=== PATIENT | female | born 1970 | race Caucasian/White ===

== ENCOUNTER 2017-09-03 16:06 | Emergency (ER) | payer OTHER ==
[~2017-09-03] VITALS: Ht 162.6 cm; Wt 47.0 kg
[~2017-09-03 16:06] MED LIST: ALBUTEROL SUL0.083 % IN; ATROVENT HFA17 MCG IN; ATUSS DS OR; AUGMENTIN500TAB PO; AUGMENTIN875TAB PO; CEPHALEXIN500 MG PO; CIPROFLOXACIN500 M1 PO; CIPROFLOXACN500 MG PO; MEDDOSEPAK PO; METRONIDAZOLE500 MG PO; NAPROSYN500 MG PO; NO HOME MEDS; NO MEDS; NYSTATIN100000 M1 PO; PREDNISONE20 MG PO; PREVPAC PO; PROAIR HFA IN; ROBITUSSIN AC10 ML PO; TESSALON PER100 MG PO; TORADOL OR; TRAMADOL HCL50 MG PO; ZITHROMAX500 MG PO; ZPAK OR; ZYPREXA ZYDI15 MG OR; ZYPREXA ZYDI15 MG PO
[2017-09-03 16:48] LABS: HEMATOCRIT 43.6 % (37.0-47.0); HEMOGLOBIN 14.9 g/dl (12.0-16.0); IMMATURE GRANULOCYTES 0.2 % (0.0-1.0); MEAN CELL VOLUME 96.9 fL CALC (80.0-100.0); MEAN CORPUSCULAR HGB 33.1 pG CALC (26.0-32.0); MEAN CORPUSCULAR HGB CONC 34.2 g/L CALC (32.0-36.0); NEUT# 3.02 thou/uL (2.00-7.15); RED BLOOD COUNT 4.5 mill/uL (4.20-5.60); RED CELL DISTRI WIDTH 15.3 % (11.5-15.5)
[2017-09-03 17:01] LABS: ALBUMIN 4.4 g/dL (3.2-5.0); ALKALINE PHOSPHATASE 73 u/l (38-126); ANION GAP 13 (6-22 (CALC)); BILIRUBIN, TOTAL 0.6 mg/dL (0.0-1.4); BUN 4 mg/dL (7-17); BUN/CREATININE RATIO 8 (12-20 (CALC)); CALCIUM 9.3 mg/dL (8.4-10.2); CARBON DIOXIDE 29 mmol/l (22-30); CHLORIDE 99 mmol/l (95-108); CREATININE 0.5 mg/dL (0.5-1.0); GFR > 60 ML/MIN (>=60 (CALC)); GFR FOR AFR.AMER. > 60 ML/MIN (>=60 (CALC)); GLUCOSE 106 mg/dL (65-105); POTASSIUM 3.6 mmol/l (3.5-5.1); SGOT/AST 38 u/l (14-36); SGPT/ALT 58 u/l (9-52); SODIUM 137 mmol/l (137-146); TOTAL PROTEIN 7.3 g/dL (6.3-8.2)
[2017-09-03 17:12] LABS: MYOGLOBIN 23 ng/mL (0 - 62)
[2017-09-03 17:13] LABS: INFLUENZA A POSITIVE (NONE DETECT); INFLUENZA B NONE DETECTED (NONE DETECT)
[2017-09-03] MEDS ORDERED: ZITHROMAX250 MG PO (17:42)
[2017-09-03] MEDS ORDERED: TAM75CAP PO (17:42)
[2017-09-03] MEDS ORDERED: TYLENOL # 31 TA1 PO (17:42)
[2017-09-03] MEDS ORDERED: PREDNISONE50 MG PO (17:42)
[2017-09-03 18:57] VITALS: BP 134/60
== END 2017-09-03 18:57 | disposition home or self-care (01) | DRG 153 ==
LOC: ED 16:06
PROVIDERS: Emergency Medicine
DX: J11.1 Influenza due to unidentified influenza virus with other respiratory manifestations (principal); J44.9 Chronic obstructive pulmonary disease, unspecified; R50.9 Fever, unspecified; R06.02 Shortness of breath; R05 Cough; Z72.0 Tobacco use

== ENCOUNTER 2018-06-09 19:43 | Emergency (ER) | payer OTHER ==
[~2018-06-09] VITALS: Ht 162.6 cm; Wt 44.5 kg
[~2018-06-09 19:43] MED LIST changes: +PREDNISONE50 MG PO; +TAM75CAP PO; +TYLENOL # 31 TA1 PO; +ZITHROMAX250 MG PO
[2018-06-09] MEDS ORDERED: OLANZAPINE2.5 MG PO (19:57)
[2018-06-09 20:41] LABS: HEMATOCRIT 43.5 % (37.0-47.0); HEMOGLOBIN 15.1 g/dl (12.0-16.0); IMMATURE GRANULOCYTES 0.3 % (0.0-5.0); MEAN CELL VOLUME 99.3 fL CALC (80.0-100.0); MEAN CORPUSCULAR HGB 34.5 pG CALC (26.0-32.0); MEAN CORPUSCULAR HGB CONC 34.7 g/L CALC (32.0-36.0); NEUT# 3.31 thou/uL (2.00-7.15); RED BLOOD COUNT 4.38 mill/uL (4.20-5.60); RED CELL DISTRI WIDTH 12.8 % (11.5-15.5)
[2018-06-09 20:45] LABS: URINE BILIRUBIN - DIPSTICK NEGATIVE (NEGATIVE); URINE BLOOD DIPSTICK NEGATIVE (NEGATIVE); URINE COLOR YELLOW; URINE GLUCOSE - DIPSTICK NEGATIVE (NEGATIVE); URINE KETONE NEGATIVE (NEGATIVE); URINE LEUK ESTERASE NEGATIVE (NEGATIVE); URINE NITRITE - DIPSTICK NEGATIVE (Negative); URINE PH 6.5 (4.5-8.0); URINE PROTEIN - DIPSTICK NEGATIVE (NEG-TRACE); URINE UROBILINOGEN - DIPSTICK 0.2 E.U./dL (0.2)
[2018-06-09 20:46] LABS: URINE CLARITY CLEAR
[2018-06-09 20:57] LABS: BARBITURATES NEGATIVE (NEGATIVE); COCAINE NEGATIVE (NEGATIVE); METHADONE NEGATIVE (NEGATIVE); OXCYCODONE NEGATIVE (NEGATIVE); TETRAHYDROCANNABIONOL NEGATIVE (NEGATIVE); TRICYLIC ANTIDEPRESSANTS NEGATIVE (NEGATIVE)
[2018-06-09 21:01] LABS: ALBUMIN 3.6 g/dL (3.2-5.0); ALKALINE PHOSPHATASE 92 u/l (38-126); BILIRUBIN, TOTAL 0.4 mg/dL (0.0-1.4); BUN 5 mg/dL (7-17); BUN/CREATININE RATIO 13 (12-20 (CALC)); CARBON DIOXIDE 34 mmol/l (22-30); CHLORIDE 96 mmol/l (95-108); CREATININE 0.4 mg/dL (0.5-1.0); GFR > 60 ML/MIN (>=60 (CALC)); GFR FOR AFR.AMER. > 60 ML/MIN (>=60 (CALC)); SGOT/AST 25 u/l (14-36); SGPT/ALT 37 u/l (9-52); SODIUM 135 mmol/l (137-146); TOTAL PROTEIN 6.5 g/dL (6.3-8.2)
[2018-06-09 21:01] LABS: INFLUENZA A NONE DETECTED (NONE DETECT); INFLUENZA B NONE DETECTED (NONE DETECT)
[2018-06-09 21:03] LABS: ANION GAP 9 (6-22 (CALC)); POTASSIUM 3.7 mmol/l (3.5-5.1)
[2018-06-09] MEDS ORDERED: PROVENTIL HFA IN (21:59)
[2018-06-09] MEDS ORDERED: CODEINE/GUAIFEN1 SOL PO (22:00)
[2018-06-09 22:34] VITALS: BP 145/74
== END 2018-06-09 22:34 | disposition home or self-care (01) ==
LOC: ED 19:43
PROVIDERS: Emergency Medicine
DX: J44.9 Chronic obstructive pulmonary disease, unspecified (principal); F32.9 Major depressive disorder, single episode, unspecified; F17.210 Nicotine dependence, cigarettes, uncomplicated; R06.02 Shortness of breath; R51 Headache; R05 Cough; R94.31 Abnormal electrocardiogram [ECG] [EKG]

== ENCOUNTER 2018-06-19 14:12 | Emergency (ER) | payer OTHER ==
[~2018-06-19] VITALS: Ht 162.6 cm; Wt 47.0 kg
[~2018-06-19 14:12] MED LIST changes: +CODEINE/GUAIFEN1 SOL PO; +OLANZAPINE2.5 MG PO; +PROVENTIL HFA IN
[2018-06-20 00:08] LABS: HEMATOCRIT 43.9 % (37.0-47.0); HEMOGLOBIN 15.2 g/dl (12.0-16.0); IMMATURE GRANULOCYTES 0.2 % (0.0-5.0); MEAN CELL VOLUME 98.4 fL CALC (80.0-100.0); MEAN CORPUSCULAR HGB 34.1 pG CALC (26.0-32.0); MEAN CORPUSCULAR HGB CONC 34.6 g/L CALC (32.0-36.0); NEUT# 5.74 thou/uL (2.00-7.15); RED BLOOD COUNT 4.46 mill/uL (4.20-5.60); RED CELL DISTRI WIDTH 13.2 % (11.5-15.5)
[2018-06-20 00:13] LABS: URINE BLOOD DIPSTICK NEGATIVE (NEGATIVE); URINE COLOR YELLOW; URINE GLUCOSE - DIPSTICK NEGATIVE (NEGATIVE); URINE KETONE 40 mg/dL (NEGATIVE); URINE LEUK ESTERASE NEGATIVE (NEGATIVE); URINE NITRITE - DIPSTICK NEGATIVE (Negative); URINE PROTEIN - DIPSTICK TRACE mg/dL (NEG-TRACE); URINE SPECIFIC GRAVITY 1.025; URINE UROBILINOGEN - DIPSTICK 0.2 E.U./dL (0.2)
[2018-06-20 00:15] VITALS: BP 142/90
[2018-06-20 00:16] LABS: BARBITURATES NEGATIVE (NEGATIVE); COCAINE NEGATIVE (NEGATIVE); METHADONE NEGATIVE (NEGATIVE); TETRAHYDROCANNABIONOL NEGATIVE (NEGATIVE); TRICYLIC ANTIDEPRESSANTS NEGATIVE (NEGATIVE)
[2018-06-20 00:17] LABS: OXCYCODONE NEGATIVE (NEGATIVE); URINE CLARITY CLEAR
[2018-06-20 00:18] LABS: URINE BILIRUBIN - DIPSTICK TRACE (NEGATIVE)
[2018-06-20 00:32] LABS: ALKALINE PHOSPHATASE 92 u/l (38-126); ANION GAP 13 (6-22 (CALC)); BILIRUBIN, TOTAL 0.9 mg/dL (0.0-1.4); BUN 9 mg/dL (7-17); BUN/CREATININE RATIO 22 (12-20 (CALC)); CARBON DIOXIDE 29 mmol/l (22-30); CHLORIDE 100 mmol/l (95-108); CREATININE 0.4 mg/dL (0.5-1.0); GFR > 60 ML/MIN (>=60 (CALC)); GFR FOR AFR.AMER. > 60 ML/MIN (>=60 (CALC)); POTASSIUM 3.2 mmol/l (3.5-5.1); SGOT/AST 40 u/l (14-36); SGPT/ALT 42 u/l (9-52); SODIUM 138 mmol/l (137-146); TOTAL PROTEIN 6.8 g/dL (6.3-8.2)
== END 2018-06-20 00:15 | disposition short-term general hospital (02) ==
LOC: ED 14:12
PROVIDERS: Emergency Medicine
DX: S22.088A Other fracture of T11-T12 vertebra, initial encounter for closed fracture (principal); S80.12XA Contusion of left lower leg, initial encounter; S80.11XA Contusion of right lower leg, initial encounter; J44.9 Chronic obstructive pulmonary disease, unspecified; F32.9 Major depressive disorder, single episode, unspecified; F17.210 Nicotine dependence, cigarettes, uncomplicated; W18.2XXA Fall in (into) shower or empty bathtub, initial encounter; Y93.E1 Activity, personal bathing and showering; Y92.002 Bathroom of unspecified non-institutional (private) residence as the place of occurrence of the external cause

== ENCOUNTER 2018-07-26 15:29 | Emergency (ER) | payer OTHER ==
[~2018-07-26] VITALS: Ht 162.6 cm; Wt 45.0 kg
[2018-07-26] MEDS ORDERED: TORADOL PO (15:55)
[2018-07-26] MEDS ORDERED: FLEXERIL PO (15:55)
[2018-07-26 16:15] VITALS: BP 109/78
== END 2018-07-26 16:15 | disposition home or self-care (01) ==
LOC: ED 15:29
DX: M54.6 Pain in thoracic spine (principal); S22.089D Unspecified fracture of T11-T12 vertebra, subsequent encounter for fracture with routine healing; J44.9 Chronic obstructive pulmonary disease, unspecified; F32.9 Major depressive disorder, single episode, unspecified; F17.210 Nicotine dependence, cigarettes, uncomplicated; X58.XXXD Exposure to other specified factors, subsequent encounter

== ENCOUNTER 2018-11-06 12:49 | Emergency (ER) | payer OTHER ==
[~2018-11-06] VITALS: Ht 162.6 cm; Wt 40.5 kg
[~2018-11-06 12:49] MED LIST changes: +FLEXERIL PO; +TORADOL PO
[2018-11-06] MEDS ORDERED: DICLOFENAC SODI75 MG PO (13:10)
[2018-11-06] MEDS ORDERED: FLOVENT HF44 MCG/ACT (13:11)
[2018-11-06] MEDS ORDERED: PROVENTIL0.083 % IN (13:12)
[2018-11-06] MEDS ORDERED: OLANZAPINE10 MG PO (13:23)
[2018-11-06] MEDS ORDERED: DICLOFENAC SODI50 M1 PO (13:24)
[2018-11-06] MEDS ORDERED: PROVENTIL HFA IN (13:24)
[2018-11-06] MEDS ORDERED: FLOVENT HF220 MCG/AC PO (13:25)
[2018-11-06] MEDS ORDERED: TORADOL PO (14:16)
[2018-11-06] MEDS ORDERED: KEFLEX500 M1 PO (14:17)
[2018-11-06 14:30] VITALS: BP 125/70
== END 2018-11-06 14:35 | disposition home or self-care (01) ==
LOC: ED 12:49
DX: S62.663A Nondisplaced fracture of distal phalanx of left middle finger, initial encounter for closed fracture (principal); J44.9 Chronic obstructive pulmonary disease, unspecified; F17.210 Nicotine dependence, cigarettes, uncomplicated; W23.0XXA Caught, crushed, jammed, or pinched between moving objects, initial encounter

== ENCOUNTER 2018-11-14 11:35 | Observation (INO) | payer OTHER ==
[~2018-11-14] VITALS: Ht 162.6 cm; Wt 44.6 kg
[~2018-11-14 11:35] MED LIST changes: +DICLOFENAC SODI50 M1 PO; +DICLOFENAC SODI75 MG PO; +FLOVENT HF220 MCG/AC PO; +FLOVENT HF44 MCG/ACT; +KEFLEX500 M1 PO; +OLANZAPINE10 MG PO; +PROVENTIL0.083 % IN
[2018-11-14 12:17] LABS: HEMATOCRIT 45.9 % (37.0-47.0); HEMOGLOBIN 15.1 g/dl (12.0-16.0); IMMATURE GRANULOCYTES 0.3 % (0.0-5.0); MEAN CELL VOLUME 101.5 fL CALC (80.0-100.0); MEAN CORPUSCULAR HGB 33.4 pG CALC (26.0-32.0); MEAN CORPUSCULAR HGB CONC 32.9 g/L CALC (32.0-36.0); NEUT# 6.55 thou/uL (2.00-7.15); RED BLOOD COUNT 4.52 mill/uL (4.20-5.60); RED CELL DISTRI WIDTH 13.7 % (11.5-15.5)
[2018-11-14 12:26] LABS: ALBUMIN 4.2 g/dL (3.2-5.0); ALKALINE PHOSPHATASE 77 u/l (38-126); ANION GAP 13 (6-22 (CALC)); BILIRUBIN, TOTAL 0.4 mg/dL (0.0-1.4); BUN 9 mg/dL (7-17); BUN/CREATININE RATIO 23 (12-20 (CALC)); CARBON DIOXIDE 30 mmol/l (22-30); CHLORIDE 103 mmol/l (95-108); CREATININE 0.4 mg/dL (0.5-1.0); GFR > 60 ML/MIN (>=60 (CALC)); GFR FOR AFR.AMER. > 60 ML/MIN (>=60 (CALC)); SGOT/AST 25 u/l (14-36); SODIUM 142 mmol/l (137-146)
[2018-11-14 12:27] LABS: PROTHROMBIN TIME 10.7 SECONDS (9.0-12.5)
[2018-11-14 12:38] LABS: MYOGLOBIN 19 ng/mL (0 - 62)
[2018-11-14 15:15] VITALS: BP 153/93
[2018-11-14 17:16] VITALS: BP 122/78
[2018-11-14 19:33] VITALS: BP 111/70
[2018-11-15 00:17] VITALS: BP 101/53
[2018-11-15 05:36] VITALS: BP 95/58
[2018-11-15 07:46] VITALS: BP 106/60
[2018-11-15 11:43] VITALS: BP 110/62
== END 2018-11-15 13:40 | disposition left against medical advice (07) ==
LOC: ED 11:35 → ED-I 12:52 → ED 13:15 → MS2 13:16
PROVIDERS: Family Medicine; ADMIT Internal Medicine; ATTEND Internal Medicine
DX: J44.1 Chronic obstructive pulmonary disease with (acute) exacerbation (principal); R06.03 Acute respiratory distress; F17.210 Nicotine dependence, cigarettes, uncomplicated; F32.9 Major depressive disorder, single episode, unspecified
CPT/HCPCS: G0378

== ENCOUNTER 2018-11-23 06:38 | Observation (INO) | payer OTHER ==
[~2018-11-23] VITALS: Ht 162.6 cm; Wt 38.8 kg
[2018-11-23 07:18] LABS: HEMATOCRIT 43.4 % (37.0-47.0); HEMOGLOBIN 14.1 g/dl (12.0-16.0); IMMATURE GRANULOCYTES 0.3 % (0.0-5.0); MEAN CELL VOLUME 103.8 fL CALC (80.0-100.0); MEAN CORPUSCULAR HGB 33.7 pG CALC (26.0-32.0); MEAN CORPUSCULAR HGB CONC 32.5 g/L CALC (32.0-36.0); NEUT# 5.16 thou/uL (2.00-7.15); RED BLOOD COUNT 4.18 mill/uL (4.20-5.60)
[2018-11-23 07:22] LABS: ANION GAP 14 (6-22 (CALC)); BUN 9 mg/dL (7-17); BUN/CREATININE RATIO 23 (12-20 (CALC)); CARBON DIOXIDE 32 mmol/l (22-30); CHLORIDE 97 mmol/l (95-108); CREATININE 0.4 mg/dL (0.5-1.0); GFR > 60 ML/MIN (>=60 (CALC)); GFR FOR AFR.AMER. > 60 ML/MIN (>=60 (CALC)); POTASSIUM 4.2 mmol/l (3.5-5.1); SODIUM 139 mmol/l (137-146)
[2018-11-23 10:05] VITALS: BP 107/69
[2018-11-23 11:30] VITALS: BP 92/55
[2018-11-23 11:45] VITALS: BP 86/59
[2018-11-23 15:54] VITALS: BP 110/78; BP 119/66; BP 97/62
== END 2018-11-23 19:08 | disposition left against medical advice (07) ==
LOC: ED 06:38 → ED-I 07:56 → ED 08:21 → ICU 08:22
PROVIDERS: Family Medicine; ADMIT Internal Medicine Nephrology; ATTEND Internal Medicine Nephrology
DX: J44.1 Chronic obstructive pulmonary disease with (acute) exacerbation (principal); J96.02 Acute respiratory failure with hypercapnia; J96.01 Acute respiratory failure with hypoxia; F17.210 Nicotine dependence, cigarettes, uncomplicated; M19.90 Unspecified osteoarthritis, unspecified site; F41.8 Other specified anxiety disorders; E46 Unspecified protein-calorie malnutrition; Z79.1 Long term (current) use of non-steroidal anti-inflammatories (NSAID)
CPT/HCPCS: J1650

== ENCOUNTER 2019-02-18 13:12 | Emergency (ER) | payer OTHER ==
[~2019-02-18] VITALS: Ht 162.6 cm; Wt 40.9 kg
[2019-02-18 16:30] LABS: HEMOGLOBIN 14.9 g/dl (12.0-16.0); IMMATURE GRANULOCYTES 0.5 % (0.0-5.0); MEAN CELL VOLUME 101.3 fL CALC (80.0-100.0); MEAN CORPUSCULAR HGB 32.8 pG CALC (26.0-32.0); MEAN CORPUSCULAR HGB CONC 32.4 g/L CALC (32.0-36.0); NEUT# 3.19 thou/uL (2.00-7.15); RED BLOOD COUNT 4.54 mill/uL (4.20-5.60); RED CELL DISTRI WIDTH 14.3 % (11.5-15.5)
[2019-02-18 16:48] LABS: ALBUMIN 4.3 g/dL (3.2-5.0); ALKALINE PHOSPHATASE 77 u/l (38-126); ANION GAP 12 (6-22 (CALC)); BILIRUBIN, TOTAL 0.4 mg/dL (0.0-1.4); BUN 9 mg/dL (7-17); BUN/CREATININE RATIO 26 (12-20 (CALC)); CARBON DIOXIDE 32 mmol/l (22-30); CHLORIDE 98 mmol/l (95-108); CREATININE 0.4 mg/dL (0.5-1.0); GFR > 60 ML/MIN (>=60 (CALC)); GFR FOR AFR.AMER. > 60 ML/MIN (>=60 (CALC)); POTASSIUM 4.6 mmol/l (3.5-5.1); SGOT/AST 27 u/l (14-36); SODIUM 138 mmol/l (137-146); TOTAL PROTEIN 7.1 g/dL (6.3-8.2)
[2019-02-18 16:53] VITALS: BP 123/83
== END 2019-02-18 16:54 | disposition left against medical advice (07) ==
LOC: ED 13:12
PROVIDERS: Family Medicine
DX: Z91.19 Patient's noncompliance with other medical treatment and regimen (principal); R50.9 Fever, unspecified; R07.9 Chest pain, unspecified; R53.1 Weakness; K08.89 Other specified disorders of teeth and supporting structures

== ENCOUNTER 2019-06-10 11:15 | Inpatient (IN) | payer OTHER ==
[2019-06-10] VITALS (7 sets, daily range): BP systolic 113–145; BP diastolic 70–95
[~2019-06-10] VITALS: Ht 162.6 cm; Wt 37.6 kg
[~2019-06-10 11:15] MED LIST changes: +METHOCARBAM750 MG PO
[2019-06-10 12:04] LABS: HEMATOCRIT 45.7 % (37.0-47.0); HEMOGLOBIN 15.4 g/dl (12.0-16.0); IMMATURE GRANULOCYTES 0.3 % (0.0-5.0); MEAN CELL VOLUME 98.5 fL CALC (80.0-100.0); MEAN CORPUSCULAR HGB 33.2 pG CALC (26.0-32.0); MEAN CORPUSCULAR HGB CONC 33.7 g/L CALC (32.0-36.0); NEUT# 8.64 thou/uL (2.00-7.15); RED BLOOD COUNT 4.64 mill/uL (4.20-5.60)
[2019-06-10 12:13] LABS: ALBUMIN 4.7 g/dL (3.2-5.0); ALKALINE PHOSPHATASE 104 u/l (38-126); ANION GAP 12 (6-22 (CALC)); BILIRUBIN, TOTAL 0.4 mg/dL (0.0-1.4); BUN 7 mg/dL (7-17); BUN/CREATININE RATIO 21 (12-20 (CALC)); CARBON DIOXIDE 33 mmol/l (22-30); CHLORIDE 99 mmol/l (95-108); CREATININE 0.3 mg/dL (0.5-1.0); GFR > 60 ML/MIN (>=60 (CALC)); GFR FOR AFR.AMER. > 60 ML/MIN (>=60 (CALC)); SGOT/AST 30 u/l (14-36); SODIUM 140 mmol/l (137-146); TOTAL PROTEIN 7.8 g/dL (6.3-8.2)
[2019-06-10 15:21] LABS: URINE BILIRUBIN - DIPSTICK NEGATIVE (NEGATIVE); URINE BLOOD DIPSTICK NEGATIVE (NEGATIVE); URINE COLOR YELLOW; URINE GLUCOSE - DIPSTICK NEGATIVE (NEGATIVE); URINE KETONE NEGATIVE (NEGATIVE); URINE LEUK ESTERASE NEGATIVE (NEGATIVE); URINE NITRITE - DIPSTICK NEGATIVE (Negative); URINE PROTEIN - DIPSTICK NEGATIVE (NEG-TRACE); URINE UROBILINOGEN - DIPSTICK 0.2 E.U./dL (0.2)
[2019-06-10 15:25] LABS: BARBITURATES NEGATIVE (NEGATIVE); COCAINE NEGATIVE (NEGATIVE); METHADONE NEGATIVE (NEGATIVE); OXCYCODONE NEGATIVE (NEGATIVE); TETRAHYDROCANNABIONOL NEGATIVE (NEGATIVE); TRICYLIC ANTIDEPRESSANTS NEGATIVE (NEGATIVE)
== END 2019-06-10 18:45 | disposition left against medical advice (07) | DRG 189 ==
LOC: ED 11:15 → ED-I 13:10 → ED 13:49 → ICU 13:50
PROVIDERS: Emergency Medicine; ADMIT Internal Medicine; ATTEND Internal Medicine
PROC: 5A09357 Assistance with Respiratory Ventilation, Less than 24 Consecutive Hours, Continuous Positive Airway Pressure (ICD-10-PCS; principal; 2019-06-10)
DX: J96.21 Acute and chronic respiratory failure with hypoxia (principal); J44.1 Chronic obstructive pulmonary disease with (acute) exacerbation; R64 Cachexia; J96.22 Acute and chronic respiratory failure with hypercapnia; F17.210 Nicotine dependence, cigarettes, uncomplicated; F15.90 Other stimulant use, unspecified, uncomplicated; Z91.19 Patient's noncompliance with other medical treatment and regimen

== ENCOUNTER 2019-06-16 02:17 | Emergency (ER) | payer OTHER ==
[~2019-06-16] VITALS: Ht 162.6 cm; Wt 40.9 kg
[2019-06-16 03:01] LABS: HEMATOCRIT 50.2 % (37.0-47.0); HEMOGLOBIN 16.5 g/dl (12.0-16.0); IMMATURE GRANULOCYTES 0.3 % (0.0-5.0); MEAN CELL VOLUME 99.2 fL CALC (80.0-100.0); MEAN CORPUSCULAR HGB 32.6 pG CALC (26.0-32.0); MEAN CORPUSCULAR HGB CONC 32.9 g/L CALC (32.0-36.0); NEUT# 6.21 thou/uL (2.00-7.15); RED BLOOD COUNT 5.06 mill/uL (4.20-5.60); RED CELL DISTRI WIDTH 13.5 % (11.5-15.5)
[2019-06-16 03:06] LABS: URINE BILIRUBIN - DIPSTICK NEGATIVE (NEGATIVE); URINE BLOOD DIPSTICK NEGATIVE (NEGATIVE); URINE COLOR YELLOW; URINE GLUCOSE - DIPSTICK NEGATIVE (NEGATIVE); URINE KETONE NEGATIVE (NEGATIVE); URINE LEUK ESTERASE NEGATIVE (NEGATIVE); URINE NITRITE - DIPSTICK NEGATIVE (Negative); URINE PROTEIN - DIPSTICK NEGATIVE (NEG-TRACE); URINE UROBILINOGEN - DIPSTICK 0.2 E.U./dL (0.2)
[2019-06-16 03:11] LABS: BARBITURATES NEGATIVE (NEGATIVE); COCAINE NEGATIVE (NEGATIVE); METHADONE NEGATIVE (NEGATIVE); TETRAHYDROCANNABIONOL NEGATIVE (NEGATIVE); TRICYLIC ANTIDEPRESSANTS NEGATIVE (NEGATIVE)
[2019-06-16 03:12] LABS: OXCYCODONE NEGATIVE (NEGATIVE)
[2019-06-16 03:18] LABS: ALBUMIN 5.1 g/dL (3.2-5.0); ALKALINE PHOSPHATASE 91 u/l (38-126); ANION GAP 14 (6-22 (CALC)); BILIRUBIN, TOTAL 0.4 mg/dL (0.0-1.4); BUN 14 mg/dL (7-17); BUN/CREATININE RATIO 34 (12-20 (CALC)); CARBON DIOXIDE 34 mmol/l (22-30); CHLORIDE 97 mmol/l (95-108); CREATININE 0.4 mg/dL (0.5-1.0); GFR > 60 ML/MIN (>=60 (CALC)); GFR FOR AFR.AMER. > 60 ML/MIN (>=60 (CALC)); POTASSIUM 4.4 mmol/l (3.5-5.1); SGOT/AST 29 u/l (14-36); SODIUM 141 mmol/l (137-146); TOTAL PROTEIN 8.3 g/dL (6.3-8.2)
[2019-06-16] MEDS ORDERED: MEDDOSEPAK PO (03:42)
[2019-06-16 04:02] VITALS: BP 124/65
== END 2019-06-16 04:12 | disposition home or self-care (01) ==
LOC: ED 02:17
PROVIDERS: Emergency Medicine
DX: J44.1 Chronic obstructive pulmonary disease with (acute) exacerbation (principal); F17.210 Nicotine dependence, cigarettes, uncomplicated; R05 Cough; R06.02 Shortness of breath

== ENCOUNTER 2019-06-19 17:29 | Emergency (ER) | payer OTHER ==
[~2019-06-19] VITALS: Ht 162.6 cm; Wt 45.5 kg
[2019-06-19 17:43] VITALS: BP 109/80
[2019-06-19] MEDS ORDERED: BENADRYL 50MG C50 MG PO (18:27)
== END 2019-06-19 18:38 | disposition home or self-care (01) ==
LOC: ED 17:29
DX: S20.469A Insect bite (nonvenomous) of unspecified back wall of thorax, initial encounter (principal); F17.210 Nicotine dependence, cigarettes, uncomplicated; W57.XXXA Bitten or stung by nonvenomous insect and other nonvenomous arthropods, initial encounter

== ENCOUNTER 2019-09-18 08:34 | Observation (INO) | payer OTHER ==
[2019-09-18] VITALS (7 sets, daily range): BP systolic 107–134; BP diastolic 75–87
[~2019-09-18] VITALS: Ht 162.6 cm; Wt 39.2 kg
[~2019-09-18 08:34] MED LIST changes: +BENADRYL 50MG C50 MG PO
[2019-09-18] MEDS ORDERED: FLOVENT HF110 MCG/AC IN (08:44)
[2019-09-18] MEDS ORDERED: VENTOLIN HF1 IN (08:45)
[2019-09-18 09:13] LABS: HEMATOCRIT 46.5 % (37.0-47.0); HEMOGLOBIN 15.3 g/dl (12.0-16.0); IMMATURE GRANULOCYTES 0.2 % (0.0-5.0); MEAN CELL VOLUME 98.3 fL CALC (80.0-100.0); MEAN CORPUSCULAR HGB 32.3 pG CALC (26.0-32.0); MEAN CORPUSCULAR HGB CONC 32.9 g/L CALC (32.0-36.0); NEUT# 5.83 thou/uL (2.00-7.15); RED BLOOD COUNT 4.73 mill/uL (4.20-5.60); RED CELL DISTRI WIDTH 13.1 % (11.5-15.5)
[2019-09-18 09:36] LABS: ALBUMIN 4.3 g/dL (3.2-5.0); ALKALINE PHOSPHATASE 72 u/l (38-126); ANION GAP 13 (6-22 (CALC)); BILIRUBIN, TOTAL 0.5 mg/dL (0.0-1.4); BUN 9 mg/dL (7-17); BUN/CREATININE RATIO 23 (12-20 (CALC)); CARBON DIOXIDE 29 mmol/l (22-30); CHLORIDE 100 mmol/l (95-108); CREATININE 0.4 mg/dL (0.5-1.0); ETHYL ALCOHOL 0 mg/dl (0-30); GFR > 60 ML/MIN (>=60 (CALC)); GFR FOR AFR.AMER. > 60 ML/MIN (>=60 (CALC)); LIPASE 28 u/l (23-300); POTASSIUM 4.1 mmol/l (3.5-5.1); SGOT/AST 24 u/l (14-36); SODIUM 138 mmol/l (137-146); TOTAL PROTEIN 7.2 g/dL (6.3-8.2)
[2019-09-18 13:17] LABS: URINE BILIRUBIN - DIPSTICK NEGATIVE (NEGATIVE); URINE BLOOD DIPSTICK NEGATIVE (NEGATIVE); URINE COLOR YELLOW; URINE GLUCOSE - DIPSTICK NEGATIVE (NEGATIVE); URINE KETONE NEGATIVE (NEGATIVE); URINE NITRITE - DIPSTICK NEGATIVE (Negative); URINE PROTEIN - DIPSTICK NEGATIVE (NEG-TRACE); URINE UROBILINOGEN - DIPSTICK 0.2 E.U./dL (0.2)
[2019-09-18 13:26] LABS: COCAINE NEGATIVE (NEGATIVE); METHADONE NEGATIVE (NEGATIVE); TETRAHYDROCANNABIONOL NEGATIVE (NEGATIVE); URINE LEUK ESTERASE NEGATIVE (NEGATIVE)
[2019-09-18 13:27] LABS: BARBITURATES NEGATIVE (NEGATIVE); OXCYCODONE NEGATIVE (NEGATIVE); TRICYLIC ANTIDEPRESSANTS NEGATIVE (NEGATIVE)
== END 2019-09-18 19:00 | disposition left against medical advice (07) ==
LOC: ED 08:34 → ED-I 10:00 → ED 10:23 → ICU 10:24
PROVIDERS: ADMIT Internal Medicine; ATTEND Internal Medicine
DX: J44.1 Chronic obstructive pulmonary disease with (acute) exacerbation (principal); J96.22 Acute and chronic respiratory failure with hypercapnia; J96.21 Acute and chronic respiratory failure with hypoxia; F15.10 Other stimulant abuse, uncomplicated; S20.219A Contusion of unspecified front wall of thorax, initial encounter; F17.200 Nicotine dependence, unspecified, uncomplicated; Y04.0XXA Assault by unarmed brawl or fight, initial encounter; Z91.19 Patient's noncompliance with other medical treatment and regimen; Z99.81 Dependence on supplemental oxygen
CPT/HCPCS: J2060; S0164

== ENCOUNTER 2019-09-22 14:02 | Emergency (ER) | payer OTHER ==
[~2019-09-22] VITALS: Ht 162.6 cm; Wt 45.5 kg
[~2019-09-22 14:02] MED LIST changes: +FLOVENT HF110 MCG/AC IN; +VENTOLIN HF1 IN
[2019-09-22 15:41] LABS: HEMATOCRIT 42.2 % (37.0-47.0); HEMOGLOBIN 14.1 g/dl (12.0-16.0); IMMATURE GRANULOCYTES 0.1 % (0.0-5.0); MEAN CELL VOLUME 96.8 fL CALC (80.0-100.0); MEAN CORPUSCULAR HGB 32.3 pG CALC (26.0-32.0); MEAN CORPUSCULAR HGB CONC 33.4 g/L CALC (32.0-36.0); NEUT# 3.6 thou/uL (2.00-7.15); RED BLOOD COUNT 4.36 mill/uL (4.20-5.60); RED CELL DISTRI WIDTH 12.9 % (11.5-15.5)
[2019-09-22 16:03] LABS: ALBUMIN 4.3 g/dL (3.2-5.0); ALKALINE PHOSPHATASE 80 u/l (38-126); ANION GAP 12 (6-22 (CALC)); BILIRUBIN, TOTAL 0.5 mg/dL (0.0-1.4); BUN 8 mg/dL (7-17); BUN/CREATININE RATIO 25 (12-20 (CALC)); CARBON DIOXIDE 28 mmol/l (22-30); CHLORIDE 100 mmol/l (95-108); CREATININE 0.3 mg/dL (0.5-1.0); GFR > 60 ML/MIN (>=60 (CALC)); GFR FOR AFR.AMER. > 60 ML/MIN (>=60 (CALC)); POTASSIUM 3.5 mmol/l (3.5-5.1); SGOT/AST 21 u/l (14-36); SODIUM 137 mmol/l (137-146); TOTAL PROTEIN 7.4 g/dL (6.3-8.2)
[2019-09-22] MEDS ORDERED: NAPROXEN DR500 MG PO (16:55)
[2019-09-22 17:35] VITALS: BP 155/88
== END 2019-09-22 17:30 | disposition home or self-care (01) ==
LOC: ED 14:02
DX: S20.211A Contusion of right front wall of thorax, initial encounter (principal); Y04.0XXA Assault by unarmed brawl or fight, initial encounter

== ENCOUNTER 2019-09-25 02:55 | Inpatient (IN) | payer OTHER ==
[2019-09-25] VITALS (17 sets, daily range): BP systolic 122–151; BP diastolic 72–98
[~2019-09-25] VITALS: Ht 162.6 cm; Wt 45.5 kg
[~2019-09-25 02:55] MED LIST changes: +NAPROXEN DR500 MG PO
[2019-09-25 03:20] LABS: HEMATOCRIT 47.6 % (37.0-47.0); HEMOGLOBIN 15.9 g/dl (12.0-16.0); IMMATURE GRANULOCYTES 0.8 % (0.0-5.0); MEAN CORPUSCULAR HGB 33.1 pG CALC (26.0-32.0); MEAN CORPUSCULAR HGB CONC 33.4 g/L CALC (32.0-36.0); NEUT# 9.89 thou/uL (2.00-7.15); RED BLOOD COUNT 4.81 mill/uL (4.20-5.60); RED CELL DISTRI WIDTH 12.9 % (11.5-15.5)
[2019-09-25 03:51] LABS: MYOGLOBIN 23 ng/mL (0 - 62)
[2019-09-25 11:33] LABS: ANION GAP 17 (6-22 (CALC)); BUN 9 mg/dL (7-17); BUN/CREATININE RATIO 28 (12-20 (CALC)); CARBON DIOXIDE 28 mmol/l (22-30); CHLORIDE 94 mmol/l (95-108); CREATININE 0.3 mg/dL (0.5-1.0); GFR > 60 ML/MIN (>=60 (CALC)); GFR FOR AFR.AMER. > 60 ML/MIN (>=60 (CALC)); POTASSIUM 3.9 mmol/l (3.5-5.1); SODIUM 136 mmol/l (137-146)
[2019-09-25] MEDS ORDERED: TAM75CAP PO (11:35)
[2019-09-25] MEDS ORDERED: MUCINEX600 MG PO (11:35)
[2019-09-25] MEDS ORDERED: ZITHROMAX250 MG PO (11:36)
[2019-09-26 01:00] VITALS: BP 135/91
[2019-09-26 02:50] LABS: URINE BILIRUBIN - DIPSTICK NEGATIVE (NEGATIVE); URINE BLOOD DIPSTICK NEGATIVE (NEGATIVE); URINE COLOR YELLOW; URINE GLUCOSE - DIPSTICK NEGATIVE (NEGATIVE); URINE KETONE NEGATIVE (NEGATIVE); URINE LEUK ESTERASE NEGATIVE (NEGATIVE); URINE NITRITE - DIPSTICK NEGATIVE (Negative); URINE PROTEIN - DIPSTICK NEGATIVE (NEG-TRACE); URINE UROBILINOGEN - DIPSTICK 0.2 E.U./dL (0.2)
[2019-09-26 02:56] LABS: BARBITURATES NEGATIVE (NEGATIVE); COCAINE NEGATIVE (NEGATIVE); METHADONE NEGATIVE (NEGATIVE); TETRAHYDROCANNABIONOL NEGATIVE (NEGATIVE); TRICYLIC ANTIDEPRESSANTS NEGATIVE (NEGATIVE)
[2019-09-26 02:57] LABS: OXCYCODONE NEGATIVE (NEGATIVE)
[2019-09-26 03:00] VITALS: BP 154/88
[2019-09-26 05:00] VITALS: BP 166/91
[2019-09-26 05:54] LABS: HEMATOCRIT 47.3 % (37.0-47.0); HEMOGLOBIN 15.8 g/dl (12.0-16.0); IMMATURE GRANULOCYTES 1.7 % (0.0-5.0); MEAN CELL VOLUME 97.5 fL CALC (80.0-100.0); MEAN CORPUSCULAR HGB 32.6 pG CALC (26.0-32.0); MEAN CORPUSCULAR HGB CONC 33.4 g/L CALC (32.0-36.0); NEUT# 8.63 thou/uL (2.00-7.15); RED BLOOD COUNT 4.85 mill/uL (4.20-5.60); RED CELL DISTRI WIDTH 13.2 % (11.5-15.5)
[2019-09-26 05:58] LABS: ALBUMIN 4.7 g/dL (3.2-5.0); ALKALINE PHOSPHATASE 88 u/l (38-126); ANION GAP 17 (6-22 (CALC)); BILIRUBIN, TOTAL 0.4 mg/dL (0.0-1.4); BUN 12 mg/dL (7-17); BUN/CREATININE RATIO 35 (12-20 (CALC)); CARBON DIOXIDE 32 mmol/l (22-30); CHLORIDE 93 mmol/l (95-108); CREATININE 0.3 mg/dL (0.5-1.0); GFR > 60 ML/MIN (>=60 (CALC)); GFR FOR AFR.AMER. > 60 ML/MIN (>=60 (CALC)); POTASSIUM 4.5 mmol/l (3.5-5.1); SODIUM 137 mmol/l (137-146); TOTAL PROTEIN 7.9 g/dL (6.3-8.2)
[2019-09-26 05:59] LABS: SGOT/AST 37 u/l (14-36)
[2019-09-26 07:00] VITALS: BP 105/75
== END 2019-09-26 10:30 | disposition left against medical advice (07) | DRG 193 ==
LOC: EDPENDDISTM → EDPENDDISDT → ED 02:55 → ED-I 03:27 → ED 05:06 → ICU 05:07
PROVIDERS: Emergency Medicine; ADMIT Internal Medicine; ATTEND Internal Medicine
PROC: 5A09357 Assistance with Respiratory Ventilation, Less than 24 Consecutive Hours, Continuous Positive Airway Pressure (ICD-10-PCS; principal; 2019-09-25)
DX: J10.00 Influenza due to other identified influenza virus with unspecified type of pneumonia (principal); J96.22 Acute and chronic respiratory failure with hypercapnia; J96.21 Acute and chronic respiratory failure with hypoxia; J44.1 Chronic obstructive pulmonary disease with (acute) exacerbation; E46 Unspecified protein-calorie malnutrition; Z68.1 Body mass index [BMI] 19.9 or less, adult; J44.0 Chronic obstructive pulmonary disease with (acute) lower respiratory infection; F17.210 Nicotine dependence, cigarettes, uncomplicated; F41.9 Anxiety disorder, unspecified; F32.9 Major depressive disorder, single episode, unspecified; Z91.19 Patient's noncompliance with other medical treatment and regimen; Z87.11 Personal history of peptic ulcer disease

== ENCOUNTER 2019-09-30 17:20 | Observation (INO) | payer OTHER ==
[~2019-09-30] VITALS: Ht 162.6 cm; Wt 36.9 kg
[2019-09-30] VITALS (8 sets, daily range): BP systolic 92–116; BP diastolic 65–82
[~2019-09-30 17:20] MED LIST changes: +MUCINEX600 MG PO
[2019-09-30 18:09] LABS: HEMATOCRIT 52.9 % (37.0-47.0); HEMOGLOBIN 17.1 g/dl (12.0-16.0); IMMATURE GRANULOCYTES 0.3 % (0.0-5.0); MEAN CORPUSCULAR HGB 32.3 pG CALC (26.0-32.0); MEAN CORPUSCULAR HGB CONC 32.3 g/L CALC (32.0-36.0); NEUT# 6.73 thou/uL (2.00-7.15); RED BLOOD COUNT 5.29 mill/uL (4.20-5.60); RED CELL DISTRI WIDTH 12.7 % (11.5-15.5)
[2019-09-30 18:17] LABS: ALBUMIN 4.2 g/dL (3.2-5.0); ALKALINE PHOSPHATASE 95 u/l (38-126); ANION GAP 12 (6-22 (CALC)); BILIRUBIN, TOTAL 0.4 mg/dL (0.0-1.4); BUN 8 mg/dL (7-17); CARBON DIOXIDE 37 mmol/l (22-30); CHLORIDE 87 mmol/l (95-108); POTASSIUM 3.8 mmol/l (3.5-5.1); SGOT/AST 35 u/l (14-36); SODIUM 132 mmol/l (137-146); TOTAL PROTEIN 7.5 g/dL (6.3-8.2)
[2019-09-30 18:19] LABS: BUN/CREATININE RATIO 40 (12-20 (CALC)); CREATININE 0.2 mg/dL (0.5-1.0); GFR > 60 ML/MIN (>=60 (CALC)); GFR FOR AFR.AMER. > 60 ML/MIN (>=60 (CALC))
[2019-10-01] VITALS (14 sets, daily range): BP systolic 95–140; BP diastolic 65–87
[2019-10-01 05:14] LABS: URINE BILIRUBIN - DIPSTICK NEGATIVE (NEGATIVE); URINE BLOOD DIPSTICK NEGATIVE (NEGATIVE); URINE COLOR YELLOW; URINE GLUCOSE - DIPSTICK NEGATIVE (NEGATIVE); URINE KETONE NEGATIVE (NEGATIVE); URINE LEUK ESTERASE NEGATIVE (NEGATIVE); URINE NITRITE - DIPSTICK NEGATIVE (Negative); URINE PH 5.5 (4.5-8.0); URINE PROTEIN - DIPSTICK NEGATIVE (NEG-TRACE); URINE SPECIFIC GRAVITY 1.025; URINE UROBILINOGEN - DIPSTICK 0.2 E.U./dL (0.2)
[2019-10-02 00:09] VITALS: BP 117/67
[2019-10-02 02:00] VITALS: BP 136/75
[2019-10-02 04:52] VITALS: BP 92/65
[2019-10-02 06:47] VITALS: BP 115/70
== END 2019-10-02 08:25 | disposition left against medical advice (07) ==
LOC: ED 17:20 → ED-I 18:12 → ED 18:41 → ICU 18:42
PROVIDERS: Family Medicine; ADMIT Internal Medicine; ATTEND Internal Medicine
DX: J44.1 Chronic obstructive pulmonary disease with (acute) exacerbation (principal); F17.210 Nicotine dependence, cigarettes, uncomplicated; J96.22 Acute and chronic respiratory failure with hypercapnia; J96.21 Acute and chronic respiratory failure with hypoxia; F19.90 Other psychoactive substance use, unspecified, uncomplicated; Z91.19 Patient's noncompliance with other medical treatment and regimen; Z87.11 Personal history of peptic ulcer disease

== ENCOUNTER 2020-08-31 18:27 | Emergency (ER) | payer OTHER ==
[~2020-08-31] VITALS: Ht 162.6 cm; Wt 41.0 kg
[2020-08-31] MEDS ORDERED: AMOXICILLIN500 MG PO (19:24)
[2020-08-31 20:53] VITALS: BP 121/67
== END 2020-08-31 20:49 | disposition home or self-care (01) ==
LOC: ED 18:27
DX: M47.817 Spondylosis without myelopathy or radiculopathy, lumbosacral region (principal); J44.9 Chronic obstructive pulmonary disease, unspecified; F31.9 Bipolar disorder, unspecified; F17.210 Nicotine dependence, cigarettes, uncomplicated

== ENCOUNTER 2020-10-03 09:30 | Emergency (ER) | payer OTHER ==
[~2020-10-03] VITALS: Ht 162.6 cm; Wt 40.9 kg
[~2020-10-03 09:30] MED LIST changes: +AMOXICILLIN500 MG PO
[2020-10-03 11:31] LABS: IMMATURE GRANULOCYTES 0.4 % (0.0-5.0); MEAN CELL VOLUME 97.2 fL CALC (80.0-100.0); NEUT# 6.12 thou/uL (2.00-7.15); RED BLOOD COUNT 4.59 mill/uL (4.20-5.60); RED CELL DISTRI WIDTH 13.8 % (11.5-15.5)
[2020-10-03 12:02] LABS: HEMATOCRIT 44.6 % (37.0-47.0); HEMOGLOBIN 14.7 g/dl (12.0-16.0)
[2020-10-03 12:03] LABS: PROTHROMBIN TIME 10.1 SECONDS (9.0-12.5)
[2020-10-03 12:31] LABS: ALBUMIN 4.3 g/dL (3.2-5.0); ALKALINE PHOSPHATASE 74 u/l (38-126); BUN 8 mg/dL (7-17); BUN/CREATININE RATIO 29 (12-20 (CALC)); CREATININE 0.3 mg/dL (0.5-1.0); GFR > 60 ML/MIN (>=60 (CALC)); GFR FOR AFR.AMER. > 60 ML/MIN (>=60 (CALC)); POTASSIUM 4.3 mmol/l (3.5-5.1); SGOT/AST 25 u/l (14-36); SODIUM 137 mmol/l (137-146); TOTAL PROTEIN 6.8 g/dL (6.3-8.2)
[2020-10-03 12:32] LABS: ANION GAP 12 (6-22 (CALC)); BILIRUBIN, TOTAL 0.7 mg/dL (0.0-1.4); CARBON DIOXIDE 28 mmol/l (22-30); CHLORIDE 101 mmol/l (95-108)
[2020-10-03] MEDS ORDERED: PREDNISONE20 MG PO (15:47)
[2020-10-03] MEDS ORDERED: PEPCID20 MG PO (17:24)
[2020-10-03] MEDS ORDERED: BENADRYL 50MG C50 MG PO (17:24)
[2020-10-03 17:45] VITALS: BP 113/69
== END 2020-10-03 17:45 | disposition home or self-care (01) ==
LOC: ED 09:30
PROVIDERS: Student in an Organized Health Care Education/Training Program
DX: J44.1 Chronic obstructive pulmonary disease with (acute) exacerbation (principal); B34.9 Viral infection, unspecified; F17.210 Nicotine dependence, cigarettes, uncomplicated; F32.9 Major depressive disorder, single episode, unspecified; R91.1 Solitary pulmonary nodule; L50.9 Urticaria, unspecified; R22.0 Localized swelling, mass and lump, head; L29.9 Pruritus, unspecified; Z20.828 Contact with and (suspected) exposure to other viral communicable diseases
CPT/HCPCS: Q9967

== ENCOUNTER 2021-01-18 09:41 | Inpatient (IN) | payer OTHER ==
[~2021-01-18] VITALS: Ht 160 cm; Wt 36.8 kg
[~2021-01-18 09:41] MED LIST changes: +PEPCID20 MG PO
--- NOTE | 2021-01-18 09:41 | NUR ---
TO ROOM VIA EMS.
--- NOTE | 2021-01-18 09:49 | NUR ---
POC REVIEWED. CALL PARKER IN PLACE
--- NOTE | 2021-01-18 10:00 | NUR ---
RECEIVED REPORT AND ASSUMED CARE. PATIENT RESTING IN BED, RT AT BEDSIDE TO ATTEMPT ABG. UNSUCCESSFUL. DR MADE AWARE BY RT. PATIENT IS RESPONSIVE AND ANSWERS WHERE SHE IS AND HER NAME. PATIENT APPEARS VERY SLEEPY. VSS AT THIS TIME. BED LOCKED AND IN LOWEST POSITION, SIDE RAILSUP X2 FOR SAFETY. CALL PARKER INREACH. PATIENT ASKED FOR WARM BLANKET WITH CLEAR SPEECH. WARM BLANKET PROVIDED. PATIENT FOLLOWS COMMANDS. WILL CONTINUE TO MONITOR.
--- NOTE | 2021-01-18 10:08 | NUR ---
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 pt yelled and cussed at ballet company artistic director and refused abg. md aware. pt resting comfortably on 2lpm nc upon arrival. wne2=323%. no acute distres noted. vss.
[2021-01-18 10:29] LABS: HEMATOCRIT 44.6 % (37.0-47.0); HEMOGLOBIN 14.7 g/dl (12.0-16.0); IMMATURE GRANULOCYTES 0.3 % (0.0-5.0); MEAN CELL VOLUME 98.2 fL CALC (80.0-100.0); MEAN CORPUSCULAR HGB 32.4 pG CALC (26.0-32.0); NEUT# 4.71 thou/uL (2.00-7.15); RED BLOOD COUNT 4.54 mill/uL (4.20-5.60); RED CELL DISTRI WIDTH 13.2 % (11.5-15.5)
--- NOTE | 2021-01-18 10:30 | NUR ---
PATIENT RESTING QUIETLY. CALL PARKER AT BEDSIDE
[2021-01-18 10:49] LABS: ALBUMIN 4.5 g/dL (3.2-5.0); ALKALINE PHOSPHATASE 85 u/l (38-126); ANION GAP 10 (6-22 (CALC)); BILIRUBIN, TOTAL 0.7 mg/dL (0.0-1.4); BUN 5 mg/dL (7-17); BUN/CREATININE RATIO 15 (12-20 (CALC)); CARBON DIOXIDE 31 mmol/l (22-30); CHLORIDE 98 mmol/l (95-108); CREATININE 0.4 mg/dL (0.5-1.0); ETHYL ALCOHOL 0 mg/dl (0-30); GFR > 60 ML/MIN (>=60 (CALC)); GFR FOR AFR.AMER. > 60 ML/MIN (>=60 (CALC)); LIPASE 26 u/l (23-300); POTASSIUM 3.5 mmol/l (3.5-5.1); SGOT/AST 30 u/l (14-36); SODIUM 136 mmol/l (137-146); TOTAL PROTEIN 7.3 g/dL (6.3-8.2)
[2021-01-18 10:56] LABS: ACT PARTIAL THROMBO TIME 23.8 SECONDS (20.0-32.5); PROTHROMBIN TIME 10.5 SECONDS (9.0-12.5)
--- NOTE | 2021-01-18 11:25 | NUR ---
RT TO BEDSIDE FOR NEB TREATMENT.
--- NOTE | 2021-01-18 12:34 | NUR ---
DR TO BEDSIDE TO DISCUSS FINDINGS.
--- NOTE | 2021-01-18 13:39 | NUR ---
[facility] FOR URINE OK PER DR PATINO. SENT TO LAB
--- NOTE | 2021-01-18 14:00 | NUR ---
PATIENT SATTING IN THE MID 80'S ON 2 L. MOUTH BREATHING NOTED. PATIENT DIFFICULT TO AROUSE. MADE AWARE. VERBAL ORDER TO CALL A DIFFERENT RT TO ATTEMPT BLOOD GAS AGAIN.
--- NOTE | 2021-01-18 14:12 | NUR ---
RT AT BEDSIDE FOR ABG.
--- NOTE | 2021-01-18 14:20 | NUR ---
BLOOD GAS PERFORMED, PATIENT TOLERATED WELL.
--- NOTE | 2021-01-18 14:30 | NUR ---
RT AT BEDSIDE TO PLACE BIPAP ON PATIENT. PATIENT TOLERATED WELL. FOLLOWS COMMANDS. BED LOCKED AND IN LOWEST POSITION, SIDE RAILS UP X2 FOR SAFETY. CALL PARKER IN REACH. PATIENT NODS YES WHEN ASKED IF SHE UNDERSTANDS HOW TO CALL FOR HELP AND THE PLAN OF CARE.
--- NOTE | 2021-01-18 15:00 | NUR ---
PT TOLERATING BIPAP WITHOUIT INCIDENT. VSS. CONTINUING TO MONITOR.
[2021-01-18 15:08] LABS: URINE BLOOD DIPSTICK NEGATIVE (NEGATIVE); URINE COLOR YELLOW; URINE GLUCOSE - DIPSTICK NEGATIVE (NEGATIVE); URINE KETONE 40 mg/dL (NEGATIVE); URINE LEUK ESTERASE NEGATIVE (NEGATIVE); URINE PROTEIN - DIPSTICK NEGATIVE (NEG-TRACE); URINE SPECIFIC GRAVITY 1.025; URINE UROBILINOGEN - DIPSTICK 0.2 E.U./dL (0.2)
[2021-01-18 15:12] LABS: URINE BILIRUBIN - DIPSTICK SMALL (NEGATIVE); URINE NITRITE - DIPSTICK NEGATIVE (Negative)
--- NOTE | 2021-01-18 15:30 | NUR ---
PLAN REVIEWED WITH PATIENT. PATIENT VERBALIZES UNDERSTANDING.
--- NOTE | 2021-01-18 15:45 | NUR ---
REPORT CALLED TO LUCERO REYNOLDS IN ICU.
--- NOTE | 2021-01-18 15:50 | NUR ---
RT CALLED TO ASSIST WITH TRANSPORT FOR BIPAP.
[2021-01-18 16:00] VITALS: BP 99/71
--- NOTE | 2021-01-18 17:04 | NUR ---
PT ARRIVES TO ROOM 3 IN THE ICU VIA STRETCHER FROM THE ER, ACCOMPANIED BY RADHA. PT IS DROWSY, BUT ALERT AND ORIENTED X 3. LUNGS CLEAR BUT QUITE DECREASED, PLACED ON BIPAP UPON ARRIVAL, BUT SWITCHED TO NC 2 LPM SOON AFTER, SATS UPPER 90s WHEN AWAKE. PT PROVIDED CALLBELL AND INSTRUCIIONS HOW TO USE. MUNA MILLER PLACED. NAD.
[2021-01-18 18:00] VITALS: BP 85/55
--- NOTE | 2021-01-18 18:11 | NUR ---
PT CONTINUES ON NASAL CANNULA WITH SATS IN THE MID 90s. PT PROVIDED SNACKS AND DINNER SHE WAS HUNGRY.
[2021-01-18 19:00] VITALS: BP 102/63
--- NOTE | 2021-01-18 19:00 | NUR ---
REPORT GIVEN BY GAIL. PATIENT IN BED WATCHING TV. RESP EVEN AND UNLABORED, 2L VIA NC. NO S/S OF DISTRESS NOTED. FALL AND SAFTEY PRECATUIONS IN PLACE. IV INFUSING FLUIDS. PATIENT REFUSING SCD'S, PATIENT EDUCATED ON PUPOSE. PLAN OF CARE DISCUSSED. PATIENT INFORMED TO CALL WITH ANY QUESTIONS OF CONCERN.
--- NOTE | 2021-01-18 19:15 | NUR ---
PATIENT REQUESTING PAIN MEDICATION AND SNACKS. SNACK BROUGHT TO PATIENT AND TYLENOL GIVEN PER MD ORDERS.
--- NOTE | 2021-01-18 19:34 | NUR ---
PATIENT REFUSING LOVENOK, PATIENT STATES " I DON'T WANT TO GET STUCK WITH NO NEEDLE". PATIENT EDUCATED ON THE RISKS AND BENEIFITS OF LOVENOK. PATIENT STILL REFUSING AT THIS TIME.
[2021-01-18 21:00] VITALS: BP 93/58
[2021-01-18 23:00] VITALS: BP 124/71
[2021-01-19] VITALS (17 sets, daily range): BP systolic 84–183; BP diastolic 42–84
--- NOTE | 2021-01-19 00:28 | NUR ---
PATIENT DISLODGED IV, 20 R WRIST. ATTEMPTEDD TO PLAC NEW IV, I WAS UNSUCCESSFUL.
--- NOTE | 2021-01-19 02:07 | NUR ---
PATIENT RESTING WITH EYES CLOSED. FALL AND SAFTEY PRECAUTIONS IN PLACE. NO S/S OF DISTRESS NOTED.
--- NOTE | 2021-01-19 06:01 | NUR ---
ELIAN WAS ABLE TO START A #22 RFA. RESP EVEN AND UNLABORED. NO S/S OF DITRESS NOTED. FALL AND SAFTEY PRECAUTIONS IN PLACE.
[2021-01-19 06:16] LABS: HEMATOCRIT 41.5 % (37.0-47.0); HEMOGLOBIN 13.1 g/dl (12.0-16.0); MEAN CORPUSCULAR HGB 31.9 pG CALC (26.0-32.0); MEAN CORPUSCULAR HGB CONC 31.6 g/dL CAL (32.0-36.0); RED BLOOD COUNT 4.11 mill/uL (4.20-5.60); RED CELL DISTRI WIDTH 13.3 % (11.5-15.5)
[2021-01-19 06:36] LABS: BUN 11 mg/dL (7-17); BUN/CREATININE RATIO 35 (12-20 (CALC)); CALCULATED LDLCHOLESTEROL 103 mg/dL (62-129 (CALC)); CARBON DIOXIDE 30 mmol/l (22-30); CHLORIDE 97 mmol/l (95-108); CHOLESTEROL HDL RATIO 2.9 (<4.4 (CALC)); CREATININE 0.3 mg/dL (0.5-1.0); GFR > 60 ML/MIN (>=60 (CALC)); GFR FOR AFR.AMER. > 60 ML/MIN (>=60 (CALC)); HDL CHOLESTEROL 61 mg/dL (>=40); MAGNESIUM 1.9 mg/dL (1.6-2.3); SODIUM 132 mmol/l (137-146); TOTAL CHOLESTEROL 178 mg/dl (0-199); TOTAL TRIGLYCERIDES 66 mg/dl (30-149); VLDL CHOLESTROL 13 mg/dl (2-49 (CALC))
[2021-01-19 06:49] LABS: ANION GAP 9 (6-22 (CALC)); POTASSIUM 4.4 mmol/l (3.5-5.1)
--- NOTE | 2021-01-19 07:25 | NUR ---
pt resting in bed with eyes closed; easily aroused; pt offers complaints of sore throat; assessment completed at this time; pt alert and oriented; denies any other discomfort; no n/v noted; resp even and unlabored; lungs coarse/ diminished bases; skin color wnl; o2 per nc; windows systems engineer loose coughing noted; hr reg; strong pulses; no edema noted; sr on monitor; abd soft with bs present; no bm noted per ad copy writer; no urine to inspect at this time; bsc; #22 patent to rfa with ivf infusing without complication; no redness or edema noted at site; plan of care/ meds explained; call light within reach; will continue to monitor
--- NOTE | 2021-01-19 08:11 | NUR ---
awake in bed eating breakfast; no apparent distress noted; o2 per nc; sr on monitor; call light within reach; will continue to monitor
--- NOTE | 2021-01-19 08:27 | NUR ---
nicotine patch explained and applied; pt declined flu vaccine
--- NOTE | 2021-01-19 08:39 | NUR ---
Dr Dwyer present at beside to assess pt and discuss plan of care
--- NOTE | 2021-01-19 10:02 | NUR ---
resting in bed with eyes closed; no apparent distress noted; iv intact and patent; sr on monitor; o2 per nc; call light within reach; will continue to monitor
--- NOTE | 2021-01-19 11:04 | NUR ---
PT APPEARS SLEEPY. NOT VERY COOPERATIVE. MINIMAL EFFORT GIVEN DURING AEROSOLIZED BRONCHODILATOR THERAPY. SPC, BUT PT INSISTS ON SWALLOWINHG SPUTUM OPPOSED TO EXPECTORATING AND CLEARING INTO CONTAINER. FLOOR LAYER TILE TO MONITOR.
--- NOTE | 2021-01-19 11:55 | NUR ---
awake in bed; yelling out to use commode; commercial insurance underwriter at beside; urinary incontinence noted; gown changed; pt offered to wash up at this time; declined because she has not finished her lunch; st on monitor; o2 per nc; iv intact and patent; call light within reach; will continue to monitor
--- NOTE | 2021-01-19 13:33 | NUR ---
UPON REVIEW OF PT'S CHART SKILLED PT SERVICES ARE NOT INDICATED AT THIS TIME.
--- NOTE | 2021-01-19 14:00 | NUR ---
resting in bed with eyes closed; no distress noted; iv intact and patent; sr on monitor; o2 per nc; call light within reach; will continue to monitor
--- NOTE | 2021-01-19 16:00 | NUR ---
resting in bed with eyes closed; resp even and unlabored; iv intact and patent' sr on monitor; o2 per nc; call light within reach; will continue to monitor
--- NOTE | 2021-01-19 18:06 | NUR ---
awake sitting in bed; no apparent distress noted; o2 per nc; iv intact and patent; no redness or edema noted; st on monitor; call light within reach
--- NOTE | 2021-01-19 19:45 | NUR ---
awake. no acute resp diff. o2 cont per nc. has prod cough of white thin sputum. monitor and storage bin tender shows sinus rhythm hr 87. #22 rfa ns infusing @ 75cchr. po fluids taken well. voids per bsc. fall precautions cont.
--- NOTE | 2021-01-19 22:00 | NUR ---
eyes closed. no distress. o2 cont.
--- NOTE | 2021-01-20 00:01 | NUR ---
eyes closed. no distress. environmental monitoring specialist shows sinus rhythm hr 86.
[2021-01-20 02:00] VITALS: BP 93/53
--- NOTE | 2021-01-20 02:00 | NUR ---
resting quietly. resps even & unlabored. no apparent distress.
[2021-01-20 04:00] VITALS: BP 170/94
--- NOTE | 2021-01-20 04:00 | NUR ---
eyes closed. no distress. o2 cont.
--- NOTE | 2021-01-20 05:00 | NUR ---
pt called this automobile and property underwriter & said "i pissed the bed. what's wrong with you bitch." spoke to pt sternly about inappropriate language.
--- NOTE | 2021-01-20 06:38 | NUR ---
SCREAMING PER MEDICAL TECHNICIAN WOKE HER UP FOR SCHED MEDICATION. D/C TX EARLY PER "I DONT NEED THIS STUPID F*CKING MEDICINE FROM YOUR STUPID *SS". MEDICAL TECHNICIAN TO MONITOR.
[2021-01-20 07:00] VITALS: BP 136/81
[2021-01-20 08:00] VITALS: BP 140/70
--- NOTE | 2021-01-20 09:21 | NUR ---
PT REQUEST COFFEE AND TO GIVE HER "SOMETHING FOR A FEVER". TEMPORAL TEMPERATURE TAKEN. PT IS AFEBRILE AT 98.9. WILL MONITOR.
[2021-01-20 10:00] VITALS: BP 131/73
--- NOTE | 2021-01-20 11:30 | NUR ---
PT HAD INCONTINENT EPISODE WHILE ATTEMPTING TO GET UP TO THE BSC, REQUESTING TO GET CLEANED UP, SUPPLIES PROVIDED TO PT AND ASSISTED WITH REMOVING THE GOWN. PT
--- NOTE | 2021-01-20 12:00 | NUR ---
PT REQUEST TO CALL A CAB, STATES SHE IS LEAVING. NOTIFIED DR. MAURER OF PATIENT LEAVING AMA.
--- NOTE | 2021-01-20 12:12 | NUR ---
Patient decides and requests to leave AMA. Attempts made to ecourage patient to remain here for continued treatment. Explained to patient all risks of leaving against medical advice. Pt verbalized understanding of all risks. Pt also encouraged to return to [facility] at any time, especially if symptoms continue or worsen. Pt verbalized understanding, AMA form signed by pt, witnessed by Ally BARKER and this filing writer.
[2021-01-20] MEDS ORDERED: ZPAK PO (12:18)
--- NOTE | 2021-01-20 12:20 | NUR ---
Discharged in stable condition via taxi paid by [facility] approved by nursing telephone operators supervisor to home against medical advice accompanied by this play writer. All belongings sent with pt. IV intact upon removal prior to d/c.
== END 2021-01-20 12:20 | disposition left against medical advice (07) | DRG 190 ==
LOC: ED 09:41 → ED-I 14:50 → ED 15:04 → ICU 15:05 → UNDODEPER 01-19 07:50 → ICU 01-20 12:20
PROVIDERS: Nurse Practitioner; ADMIT Internal Medicine; ATTEND Internal Medicine
PROC: 5A09357 Assistance with Respiratory Ventilation, Less than 24 Consecutive Hours, Continuous Positive Airway Pressure (ICD-10-PCS; principal; 2021-01-18)
DX: J44.1 Chronic obstructive pulmonary disease with (acute) exacerbation (principal); J96.22 Acute and chronic respiratory failure with hypercapnia; J96.21 Acute and chronic respiratory failure with hypoxia; G92 Toxic encephalopathy; F15.10 Other stimulant abuse, uncomplicated; F12.10 Cannabis abuse, uncomplicated; F31.9 Bipolar disorder, unspecified; M41.9 Scoliosis, unspecified; F41.9 Anxiety disorder, unspecified; F17.200 Nicotine dependence, unspecified, uncomplicated; Z86.16 Personal history of COVID-19; Z87.11 Personal history of peptic ulcer disease; Z91.19 Patient's noncompliance with other medical treatment and regimen; Z20.822 Contact with and (suspected) exposure to COVID-19
CPT/HCPCS: J1650

== ENCOUNTER 2021-10-26 09:31 | Observation (INO) | payer OTHER ==
[~2021-10-26] VITALS: Ht 160 cm; Wt 42.0 kg
[~2021-10-26 09:31] MED LIST changes: +ZPAK PO
[2021-10-26 10:22] LABS: IMMATURE GRANULOCYTES 0.1 % (0.0-5.0); MEAN CELL VOLUME 100.4 fL CALC (80.0-100.0); MEAN CORPUSCULAR HGB 32.9 pG CALC (26.0-32.0); MEAN CORPUSCULAR HGB CONC 32.8 g/dL CAL (32.0-36.0); NEUT# 8.29 thou/uL (2.00-7.15); RED BLOOD COUNT 4.74 mill/uL (4.20-5.60); RED CELL DISTRI WIDTH 13.4 % (11.5-15.5)
[2021-10-26 10:28] LABS: HEMATOCRIT 47.6 % (37.0-47.0); HEMOGLOBIN 15.6 g/dl (12.0-16.0)
[2021-10-26 10:29] LABS: ACT PARTIAL THROMBO TIME 21.1 SECONDS (20.0-32.5); ALBUMIN 4.9 g/dL (3.2-5.0); ALKALINE PHOSPHATASE 76 u/l (38-126); ANION GAP 11 (6-22 (CALC)); BILIRUBIN, TOTAL 0.6 mg/dL (0.0-1.4); BUN 8 mg/dL (7-17); BUN/CREATININE RATIO 19 (12-20 (CALC)); CARBON DIOXIDE 29 mmol/l (22-30); CHLORIDE 100 mmol/l (95-108); CREATININE 0.4 mg/dL (0.5-1.0); ETHYL ALCOHOL 0 mg/dl (0-30); GFR > 60 ML/MIN (>=60 (CALC)); GFR FOR AFR.AMER. > 60 ML/MIN (>=60 (CALC)); INTERNATIONAL NORMALIZED RATIO 1.1 RATIO (0.7-1.3); LIPASE 33 u/l (23-300); POTASSIUM 3.9 mmol/l (3.5-5.1); PROTHROMBIN TIME 11.2 SECONDS (9.0-12.5); SGOT/AST 29 u/l (14-36); SODIUM 136 mmol/l (137-146); TOTAL PROTEIN 8.3 g/dL (6.3-8.2)
[2021-10-26 19:20] VITALS: BP 124/88
[2021-10-26] MEDS ORDERED: ZESTRIL5 M1 PO (19:48)
[2021-10-26] MEDS ORDERED: ALBUTEROL SUL0.083 % IN (21:43)
[2021-10-27 09:09] VITALS: BP 128/84
== END 2021-10-27 13:23 | disposition left against medical advice (07) ==
LOC: ED 09:31 → ED-I 11:15 → ED 11:27 → MS2 11:28
PROVIDERS: ADMIT Internal Medicine; ATTEND Internal Medicine
DX: J44.1 Chronic obstructive pulmonary disease with (acute) exacerbation (principal); J10.1 Influenza due to other identified influenza virus with other respiratory manifestations; J96.22 Acute and chronic respiratory failure with hypercapnia; J96.21 Acute and chronic respiratory failure with hypoxia; F31.9 Bipolar disorder, unspecified; F41.9 Anxiety disorder, unspecified; F17.200 Nicotine dependence, unspecified, uncomplicated; T41.5X6A Underdosing of therapeutic gases, initial encounter; Z91.128 Patient's intentional underdosing of medication regimen for other reason; Z99.81 Dependence on supplemental oxygen; Z87.11 Personal history of peptic ulcer disease; Z20.822 Contact with and (suspected) exposure to COVID-19
CPT/HCPCS: G0378; J1650

== ENCOUNTER 2021-11-05 13:32 | Emergency (ER) | payer OTHER ==
[~2021-11-05] VITALS: Ht 160 cm; Wt 50.0 kg
[~2021-11-05 13:32] MED LIST changes: +ZESTRIL5 M1 PO
[2021-11-05] MEDS ORDERED: DOXYCYCL HYC100 M4 PO ×2 (17:07→17:27)
[2021-11-05 17:18] VITALS: BP 123/84
== END 2021-11-05 17:18 | disposition home or self-care (01) ==
LOC: ED 13:32
DX: J06.9 Acute upper respiratory infection, unspecified (principal); J44.9 Chronic obstructive pulmonary disease, unspecified; F31.9 Bipolar disorder, unspecified; F17.200 Nicotine dependence, unspecified, uncomplicated; Z20.822 Contact with and (suspected) exposure to COVID-19

== ENCOUNTER 2022-04-30 12:03 | Emergency (ER) | payer OTHER ==
[~2022-04-30] VITALS: Ht 160 cm; Wt 40.9 kg
[2022-04-30] VITALS (8 sets, daily range): BP systolic 99–129; BP diastolic 71–84
[~2022-04-30 12:03] MED LIST changes: +DOXYCYCL HYC100 M4 PO
[2022-04-30 12:59] LABS: HEMATOCRIT 43.1 % (37.0-47.0); HEMOGLOBIN 14.3 g/dl (12.0-16.0); IMMATURE GRANULOCYTES 0.1 % (0.0-5.0); MEAN CELL VOLUME 100.2 fL CALC (80.0-100.0); MEAN CORPUSCULAR HGB 33.3 pG CALC (26.0-32.0); MEAN CORPUSCULAR HGB CONC 33.2 g/dL CAL (32.0-36.0); NEUT# 5.17 thou/uL (2.00-7.15); RED BLOOD COUNT 4.3 mill/uL (4.20-5.60); RED CELL DISTRI WIDTH 12.9 % (11.5-15.5)
[2022-04-30 13:31] LABS: ALKALINE PHOSPHATASE 55 u/l (38-126); BILIRUBIN, TOTAL 0.5 mg/dL (0.0-1.4); BUN 8 mg/dL (7-17); BUN/CREATININE RATIO 20 (12-20 (CALC)); CHLORIDE 95 mmol/l (95-108); CREATININE 0.4 mg/dL (0.5-1.0); GFR FOR AFR.AMER. > 60 ML/MIN (>=60 (CALC)); GFR OTHER RACES > 60 ML/MIN (>=60 (CALC)); POTASSIUM 3.3 mmol/l (3.5-5.1); SGOT/AST 24 u/l (14-36); SODIUM 136 mmol/l (137-146)
[2022-04-30 13:38] LABS: ALBUMIN 3.9 g/dL (3.2-5.0); ANION GAP 9 (6-22 (CALC)); CARBON DIOXIDE 35 mmol/l (22-30); TOTAL PROTEIN 6.5 g/dL (6.3-8.2)
[2022-04-30 18:17] LABS: URINE BLOOD DIPSTICK NEGATIVE (NEGATIVE); URINE GLUCOSE - DIPSTICK NEGATIVE (NEGATIVE); URINE KETONE NEGATIVE (NEGATIVE); URINE LEUK ESTERASE TRACE (NEGATIVE); URINE PROTEIN - DIPSTICK TRACE mg/dL (NEG-TRACE); URINE SPECIFIC GRAVITY >=1.030
[2022-04-30 18:23] LABS: URINE BILIRUBIN - DIPSTICK SMALL (NEGATIVE); URINE COLOR DK. YELLOW; URINE NITRITE - DIPSTICK NEGATIVE (Negative)
[2022-04-30] MEDS ORDERED: NAPROXEN500 MG PO (18:55)
[2022-04-30] MEDS ORDERED: METHOCARBAMOL500 MG PO (18:55)
== END 2022-04-30 19:10 | disposition home or self-care (01) ==
LOC: ED 12:03
PROVIDERS: Family Medicine
DX: S33.5XXA Sprain of ligaments of lumbar spine, initial encounter (principal); R64 Cachexia; J44.9 Chronic obstructive pulmonary disease, unspecified; F31.9 Bipolar disorder, unspecified; F17.210 Nicotine dependence, cigarettes, uncomplicated; X58.XXXA Exposure to other specified factors, initial encounter

== ENCOUNTER 2022-05-30 10:18 | Emergency (ER) | payer OTHER ==
[~2022-05-30] VITALS: Ht 162.6 cm; Wt 84.0 kg
[2022-05-30] VITALS (7 sets, daily range): BP systolic 107–144; BP diastolic 70–115
[~2022-05-30 10:18] MED LIST changes: +METHOCARBAMOL500 MG PO; +NAPROXEN500 MG PO
[2022-05-30 10:46] LABS: HEMATOCRIT 48.8 % (37.0-47.0); HEMOGLOBIN 15.9 g/dl (12.0-16.0); MEAN CELL VOLUME 101.2 fL CALC (80.0-100.0); MEAN CORPUSCULAR HGB CONC 32.6 g/dL CAL (32.0-36.0); NEUT# 4.72 thou/uL (2.00-7.15); RED BLOOD COUNT 4.82 mill/uL (4.20-5.60); RED CELL DISTRI WIDTH 13.7 % (11.5-15.5)
[2022-05-30 11:00] LABS: ALKALINE PHOSPHATASE 64 u/l (38-126); ANION GAP 10 (6-22 (CALC)); BILIRUBIN, TOTAL 0.6 mg/dL (0.0-1.4); BUN 10 mg/dL (7-17); BUN/CREATININE RATIO 25 (12-20 (CALC)); CARBON DIOXIDE 32 mmol/l (22-30); CHLORIDE 103 mmol/l (95-108); CREATININE 0.4 mg/dL (0.5-1.0); GFR FOR AFR.AMER. > 60 ML/MIN (>=60 (CALC)); GFR OTHER RACES > 60 ML/MIN (>=60 (CALC)); POTASSIUM 3.9 mmol/l (3.5-5.1); SGOT/AST 25 u/l (14-36); SODIUM 141 mmol/l (137-146); TOTAL PROTEIN 7.7 g/dL (6.3-8.2)
[2022-05-30 11:04] LABS: ALBUMIN 4.7 g/dL (3.2-5.0)
[2022-05-30] MEDS ORDERED: PROAIR HFA108 MCG/AC PO (13:13)
[2022-05-30] MEDS ORDERED: ZPAK PO (13:13)
[2022-05-30] MEDS ORDERED: PREDNISONE50 MG PO (13:13)
== END 2022-05-30 13:20 | disposition left against medical advice (07) ==
LOC: ED 10:18 → ED-I 12:46 → ED 13:20
PROVIDERS: Family Medicine
DX: J44.1 Chronic obstructive pulmonary disease with (acute) exacerbation (principal); F31.9 Bipolar disorder, unspecified; F17.200 Nicotine dependence, unspecified, uncomplicated; Z91.19 Patient's noncompliance with other medical treatment and regimen; Z20.822 Contact with and (suspected) exposure to COVID-19

== ENCOUNTER 2022-05-31 19:49 | Observation (INO) | payer OTHER ==
[~2022-05-31] VITALS: Ht 162.6 cm; Wt 40.5 kg
[~2022-05-31 19:49] MED LIST changes: +PROAIR HFA108 MCG/AC PO
[2022-05-31 20:32] VITALS: BP 132/89
[2022-05-31 20:43] LABS: HEMATOCRIT 42.1 % (37.0-47.0); HEMOGLOBIN 13.7 g/dl (12.0-16.0); IMMATURE GRANULOCYTES 0.2 % (0.0-5.0); MEAN CELL VOLUME 101.7 fL CALC (80.0-100.0); MEAN CORPUSCULAR HGB 33.1 pG CALC (26.0-32.0); MEAN CORPUSCULAR HGB CONC 32.5 g/dL CAL (32.0-36.0); NEUT# 9.67 thou/uL (2.00-7.15); RED BLOOD COUNT 4.14 mill/uL (4.20-5.60); RED CELL DISTRI WIDTH 13.8 % (11.5-15.5)
[2022-05-31 20:45] VITALS: BP 128/84
[2022-05-31 20:57] LABS: ALBUMIN 4.5 g/dL (3.2-5.0); ALKALINE PHOSPHATASE 65 u/l (38-126); ANION GAP 10 (6-22 (CALC)); BILIRUBIN, TOTAL 0.3 mg/dL (0.0-1.4); BUN 12 mg/dL (7-17); BUN/CREATININE RATIO 33 (12-20 (CALC)); CARBON DIOXIDE 34 mmol/l (22-30); CHLORIDE 99 mmol/l (95-108); CREATININE 0.4 mg/dL (0.5-1.0); GFR FOR AFR.AMER. > 60 ML/MIN (>=60 (CALC)); GFR OTHER RACES > 60 ML/MIN (>=60 (CALC)); POTASSIUM 3.9 mmol/l (3.5-5.1); SGOT/AST 23 u/l (14-36); SODIUM 138 mmol/l (137-146); TOTAL PROTEIN 7.1 g/dL (6.3-8.2)
[2022-05-31 21:00] VITALS: BP 119/81
[2022-05-31 21:09] LABS: MYOGLOBIN 35 ng/mL (0 - 62)
[2022-05-31 21:15] VITALS: BP 117/77
--- NOTE | 2022-05-31 21:29 | NUR ---
Reassessment of patient completed. No distress noted.
[2022-05-31 21:30] VITALS: BP 124/77
[2022-05-31 21:56] LABS: URINE BILIRUBIN - DIPSTICK NEGATIVE (NEGATIVE); URINE BLOOD DIPSTICK NEGATIVE (NEGATIVE); URINE COLOR YELLOW; URINE GLUCOSE - DIPSTICK NEGATIVE (NEGATIVE); URINE KETONE NEGATIVE (NEGATIVE); URINE LEUK ESTERASE TRACE (NEGATIVE); URINE PROTEIN - DIPSTICK NEGATIVE (NEG-TRACE); URINE SPECIFIC GRAVITY 1.015; URINE UROBILINOGEN - DIPSTICK 0.2 E.U./dL (0.2)
[2022-05-31 21:58] LABS: URINE NITRITE - DIPSTICK NEGATIVE (Negative)
--- NOTE | 2022-05-31 22:30 | NUR ---
Reassessment of patient completed. No distress noted.
--- NOTE | 2022-05-31 22:58 | NUR ---
Reassessment of patient completed. No distress noted.
--- NOTE | 2022-05-31 23:00 | NUR ---
PATIENT TO BE ADMITTED TO FLOOR. PATIENT AWARE AND AGREEABLE WITH PLAN OF CARE. DENIES PAIN OR DISCOMFORT. CONTINUES WITH PRODUCTIVE COUGH. DENIES SHORTNESS OF BREATH. RESPIRATIONS EVEN AND UNLABORED. VSS. WILL CONTINUE WITH PLAN OF CARE.
[2022-05-31 23:46] VITALS: BP 104/74
[2022-06-01] VITALS: BP 106/63; BP 124/80
[2022-06-01 00:16] VITALS: BP 124/80
--- NOTE | 2022-06-01 01:17 | NUR ---
PT ARRIVED TO FLOOR BY STRETCHER, NO DISTRESS NOTED, ADMISSION AND ASSESSMENT DONE, PT RESTING COMFORTABLY IN BED, BED IN LOW POSITION CALL LIGHT IN REACH
[2022-06-01 04:00] VITALS: BP 114/87
[2022-06-01 04:22] VITALS: BP 114/87
--- NOTE | 2022-06-01 07:47 | NUR ---
PT SITTING ON THE SIDE OF THE BED. C/O SOB. WHEEZING HEARD THROUGHOUT DURING AUSCULTATION. O2 VIA NC @2L APPLIED. DR MAURER NOTIFIED, ORDER OBTAINED FOR BREATHING TXS AND ALBUTEROL INHALER. ORDER WRITTEN AND FAXED TO PHARMACY. ACTIVE BOWEL SOUNDS X4 QUADRANTS. EMS SITE HEALTHY AND PATENT. VICE PRESIDENT INDUSTRIAL RELATIONS IN PLACE. ASSESSMENT COMPLETED. DISCUSSED POC. CALL LIGHT WITHIN REACH.
--- NOTE | 2022-06-01 08:17 | NUR ---
JANET Og RT AT BEDSIDE FOR NYDIA CLAIRE.
--- NOTE | 2022-06-01 09:30 | NUR ---
DR MAURER AT BEDSIDE FOR ASSESSMENT AND DISCUSSION OF POC. PT BEING RUDE YELLING AT THIS FLEET OPERATIONS MANAGER AND MD; YELLING "THIS IS SOME FUCKEN BS, YALL ARE DISCRIMINATING, NO BREAKFAST", PT REASSURED THIS FLEET OPERATIONS MANAGER AND MD WERE NOT BEING DISCRIMINATING & THAT BREAKFAST WAS ON ITS WAY. PT ENCOURAGED TO STOP YELLING AT STAFF. NURSING FIRE EXTINGUISHER SPRINKLER INSPECTOR AT BEDSIDE. PT AGREEABLE TO BE COOPERATIVE WITH STAFF & MORE RESPECTFUL.
[2022-06-01] MEDS ORDERED: PREDNISONE50 MG PO (12:41)
--- NOTE | 2022-06-01 13:00 | NUR ---
Discharge instructions given. Patient verbalizes understanding of same. Discharged in stable condition via Taxi to her friends house accompanied by staff. All belongings sent with pt.
[2022-06-01] MEDS ORDERED: KEFLEX500 MG PO (21:20)
[2022-06-01] MEDS ORDERED: MEDDOSEPAK PO (21:20)
== END 2022-06-01 13:06 | disposition home or self-care (01) ==
LOC: ED 19:49 → ED-I 22:00 → ED 22:07 → MS2 22:08
PROVIDERS: Emergency Medicine; ADMIT Internal Medicine; ATTEND Internal Medicine
DX: J44.1 Chronic obstructive pulmonary disease with (acute) exacerbation (principal); J96.10 Chronic respiratory failure, unspecified whether with hypoxia or hypercapnia; F31.9 Bipolar disorder, unspecified; F17.210 Nicotine dependence, cigarettes, uncomplicated; T41.5X6A Underdosing of therapeutic gases, initial encounter; Z91.128 Patient's intentional underdosing of medication regimen for other reason; Z99.81 Dependence on supplemental oxygen; Z87.11 Personal history of peptic ulcer disease; Z20.822 Contact with and (suspected) exposure to COVID-19
CPT/HCPCS: G0378

== ENCOUNTER 2022-06-01 18:50 | Emergency (ER) | payer OTHER ==
[~2022-06-01] VITALS: Ht 162.6 cm; Wt 40.0 kg
[2022-06-01 19:16] VITALS: BP 150/94
[2022-06-01 19:30] VITALS: BP 143/90
[2022-06-01 20:00] LABS: URINE BILIRUBIN - DIPSTICK NEGATIVE (NEGATIVE); URINE BLOOD DIPSTICK NEGATIVE (NEGATIVE); URINE COLOR YELLOW; URINE GLUCOSE - DIPSTICK NEGATIVE (NEGATIVE); URINE KETONE NEGATIVE (NEGATIVE); URINE LEUK ESTERASE NEGATIVE (NEGATIVE); URINE PH 7.5 (4.5-8.0); URINE PROTEIN - DIPSTICK NEGATIVE (NEG-TRACE); URINE UROBILINOGEN - DIPSTICK 0.2 E.U./dL (0.2)
[2022-06-01 20:01] LABS: URINE NITRITE - DIPSTICK NEGATIVE (Negative)
[2022-06-01 20:01] LABS: HEMATOCRIT 42.1 % (37.0-47.0); HEMOGLOBIN 13.6 g/dl (12.0-16.0); IMMATURE GRANULOCYTES 0.3 % (0.0-5.0); MEAN CELL VOLUME 102.4 fL CALC (80.0-100.0); MEAN CORPUSCULAR HGB 33.1 pG CALC (26.0-32.0); MEAN CORPUSCULAR HGB CONC 32.3 g/dL CAL (32.0-36.0); NEUT# 10.09 thou/uL (2.00-7.15); RED BLOOD COUNT 4.11 mill/uL (4.20-5.60); RED CELL DISTRI WIDTH 13.7 % (11.5-15.5)
[2022-06-01 20:08] LABS: URINE RBC 0-2 RBC/hpf (0-5)
[2022-06-01 20:09] LABS: URINE AMORPH SEDIMENT MODERATE hpf (NONE-FEW)
[2022-06-01 20:18] LABS: ALBUMIN 4.4 g/dL (3.2-5.0); ALKALINE PHOSPHATASE 56 u/l (38-126); ANION GAP 9 (6-22 (CALC)); BILIRUBIN, TOTAL 0.2 mg/dL (0.0-1.4); BUN 17 mg/dL (7-17); BUN/CREATININE RATIO 38 (12-20 (CALC)); CARBON DIOXIDE 38 mmol/l (22-30); CHLORIDE 99 mmol/l (95-108); CREATININE 0.5 mg/dL (0.5-1.0); GFR FOR AFR.AMER. > 60 ML/MIN (>=60 (CALC)); GFR OTHER RACES > 60 ML/MIN (>=60 (CALC)); POTASSIUM 4.1 mmol/l (3.5-5.1); SGOT/AST 24 u/l (14-36); SODIUM 141 mmol/l (137-146)
[2022-06-01 20:29] LABS: MYOGLOBIN 31 ng/mL (0 - 62)
[2022-06-01] MEDS ORDERED: MEDDOSEPAK PO (21:20)
[2022-06-01] MEDS ORDERED: KEFLEX500 MG PO (21:20)
[2022-06-01 21:30] VITALS: BP 136/78
== END 2022-06-01 21:30 | disposition home or self-care (01) ==
LOC: ED 18:50
PROVIDERS: Emergency Medicine
DX: J44.1 Chronic obstructive pulmonary disease with (acute) exacerbation (principal); F31.9 Bipolar disorder, unspecified; F17.200 Nicotine dependence, unspecified, uncomplicated

== ENCOUNTER 2022-06-25 21:30 | Emergency (ER) | payer OTHER ==
[2022-06-25] VITALS (10 sets, daily range): BP systolic 114–167; BP diastolic 73–103
[~2022-06-25] VITALS: Ht 162.6 cm; Wt 40.0 kg
[~2022-06-25 21:30] MED LIST changes: +KEFLEX500 MG PO
[2022-06-25 22:09] LABS: HEMATOCRIT 43.6 % (37.0-47.0); HEMOGLOBIN 14.4 g/dl (12.0-16.0); IMMATURE GRANULOCYTES 0.2 % (0.0-5.0); MEAN CELL VOLUME 99.1 fL CALC (80.0-100.0); MEAN CORPUSCULAR HGB 32.7 pG CALC (26.0-32.0); NEUT# 4.51 thou/uL (2.00-7.15); RED BLOOD COUNT 4.4 mill/uL (4.20-5.60)
[2022-06-25 22:27] LABS: ALBUMIN 4.4 g/dL (3.2-5.0); ALKALINE PHOSPHATASE 71 u/l (38-126); ANION GAP 13 (6-22 (CALC)); BUN 9 mg/dL (7-17); BUN/CREATININE RATIO 27 (12-20 (CALC)); CARBON DIOXIDE 32 mmol/l (22-30); CHLORIDE 95 mmol/l (95-108); CREATININE 0.3 mg/dL (0.5-1.0); GFR FOR AFR.AMER. > 60 ML/MIN (>=60 (CALC)); GFR OTHER RACES > 60 ML/MIN (>=60 (CALC)); POTASSIUM 3.7 mmol/l (3.5-5.1); SGOT/AST 29 u/l (14-36); SODIUM 136 mmol/l (137-146); TOTAL PROTEIN 7.6 g/dL (6.3-8.2)
[2022-06-25 22:36] LABS: BILIRUBIN, TOTAL 0.3 mg/dL (0.0-1.4)
[2022-06-25 22:37] LABS: MYOGLOBIN 23 ng/mL (0 - 62)
[2022-06-26] VITALS (19 sets, daily range): BP systolic 90–184; BP diastolic 60–142
[2022-06-26] MEDS ORDERED: MEDDOSEPAK PO (00:05)
[2022-06-26] MEDS ORDERED: ZPAK PO (00:05)
[2022-06-27] MEDS ORDERED: PROAIR HFA108 MCG/AC IN (14:55)
== END 2022-06-26 04:45 | disposition home or self-care (01) ==
LOC: ED 21:30
PROVIDERS: Emergency Medicine
DX: J44.1 Chronic obstructive pulmonary disease with (acute) exacerbation (principal); U07.1 COVID-19; F31.9 Bipolar disorder, unspecified; F17.200 Nicotine dependence, unspecified, uncomplicated; Z99.81 Dependence on supplemental oxygen

== ENCOUNTER 2022-06-27 10:16 | Observation (INO) | payer OTHER ==
[~2022-06-27] VITALS: Ht 162.6 cm; Wt 38.0 kg
[2022-06-27] VITALS (16 sets, daily range): BP systolic 105–140; BP diastolic 67–106
[2022-06-27 10:46] LABS: HEMOGLOBIN 13.1 g/dl (12.0-16.0); IMMATURE GRANULOCYTES 0.2 % (0.0-5.0); MEAN CORPUSCULAR HGB 32.4 pG CALC (26.0-32.0); MEAN CORPUSCULAR HGB CONC 32.8 g/dL CAL (32.0-36.0); NEUT# 6.59 thou/uL (2.00-7.15); RED BLOOD COUNT 4.04 mill/uL (4.20-5.60); RED CELL DISTRI WIDTH 13.1 % (11.5-15.5)
[2022-06-27 11:01] LABS: ALBUMIN 4.1 g/dL (3.2-5.0); ALKALINE PHOSPHATASE 63 u/l (38-126); ANION GAP 9 (6-22 (CALC)); BILIRUBIN, TOTAL 0.3 mg/dL (0.0-1.4); BUN 7 mg/dL (7-17); BUN/CREATININE RATIO 20 (12-20 (CALC)); CARBON DIOXIDE 35 mmol/l (22-30); CHLORIDE 96 mmol/l (95-108); CREATININE 0.3 mg/dL (0.5-1.0); GFR FOR AFR.AMER. > 60 ML/MIN (>=60 (CALC)); GFR OTHER RACES > 60 ML/MIN (>=60 (CALC)); POTASSIUM 4.3 mmol/l (3.5-5.1); SGOT/AST 32 u/l (14-36); SODIUM 137 mmol/l (137-146)
[2022-06-27 11:03] LABS: URINE BILIRUBIN - DIPSTICK NEGATIVE (NEGATIVE); URINE BLOOD DIPSTICK NEGATIVE (NEGATIVE); URINE COLOR YELLOW; URINE GLUCOSE - DIPSTICK NEGATIVE (NEGATIVE); URINE KETONE NEGATIVE (NEGATIVE); URINE LEUK ESTERASE NEGATIVE (NEGATIVE); URINE NITRITE - DIPSTICK NEGATIVE (Negative); URINE PH 6.5 (4.5-8.0); URINE PROTEIN - DIPSTICK NEGATIVE (NEG-TRACE); URINE SPECIFIC GRAVITY <=1.005; URINE UROBILINOGEN - DIPSTICK 0.2 E.U./dL (0.2)
[2022-06-27] MEDS ORDERED: PROAIR HFA108 MCG/AC IN (14:55)
[2022-06-28 03:18] VITALS: BP 123/68
[2022-06-28 05:37] LABS: HEMATOCRIT 40.6 % (37.0-47.0); HEMOGLOBIN 13.4 g/dl (12.0-16.0); MEAN CELL VOLUME 100.7 fL CALC (80.0-100.0); MEAN CORPUSCULAR HGB 33.3 pG CALC (26.0-32.0); RED BLOOD COUNT 4.03 mill/uL (4.20-5.60); RED CELL DISTRI WIDTH 13.3 % (11.5-15.5)
[2022-06-28 05:58] LABS: ALBUMIN 3.5 g/dL (3.2-5.0); ALKALINE PHOSPHATASE 69 u/l (38-126); ANION GAP 7 (6-22 (CALC)); BILIRUBIN, TOTAL 0.2 mg/dL (0.0-1.4); BUN 12 mg/dL (7-17); BUN/CREATININE RATIO 34 (12-20 (CALC)); CARBON DIOXIDE 34 mmol/l (22-30); CHLORIDE 100 mmol/l (95-108); CREATININE 0.3 mg/dL (0.5-1.0); GFR FOR AFR.AMER. > 60 ML/MIN (>=60 (CALC)); GFR OTHER RACES > 60 ML/MIN (>=60 (CALC)); MAGNESIUM 2.2 mg/dL (1.6-2.3); POTASSIUM 5.1 mmol/l (3.5-5.1); SGOT/AST 27 u/l (14-36); SODIUM 136 mmol/l (137-146); TOTAL PROTEIN 5.8 g/dL (6.3-8.2)
[2022-06-28 07:15] VITALS: BP 132/94
[2022-06-28] MEDS ORDERED: ZPAK PO (11:26)
[2022-06-28] MEDS ORDERED: DECADRON2 MG PO (11:26)
== END 2022-06-28 13:25 | disposition home or self-care (01) ==
LOC: ED 10:16 → ED-I 11:44 → MS2 12:16 → ED 12:16 → MS2 14:47
PROVIDERS: Family Medicine; Nurse Practitioner; ADMIT Internal Medicine; ATTEND Internal Medicine
DX: U07.1 COVID-19 (principal); J44.1 Chronic obstructive pulmonary disease with (acute) exacerbation; J96.10 Chronic respiratory failure, unspecified whether with hypoxia or hypercapnia; F31.9 Bipolar disorder, unspecified; F41.9 Anxiety disorder, unspecified; F17.200 Nicotine dependence, unspecified, uncomplicated; Z87.11 Personal history of peptic ulcer disease; Z99.81 Dependence on supplemental oxygen
CPT/HCPCS: G0378; J1100; J1650; J2060

== ENCOUNTER 2022-07-27 20:35 | Emergency (ER) | payer OTHER ==
[~2022-07-27] VITALS: Ht 162.6 cm; Wt 41.0 kg
[2022-07-27] VITALS (13 sets, daily range): BP systolic 104–143; BP diastolic 65–101
[~2022-07-27 20:35] MED LIST changes: +DECADRON2 MG PO; +PROAIR HFA108 MCG/AC IN
[2022-07-27 21:12] LABS: HEMATOCRIT 44.5 % (37.0-47.0); HEMOGLOBIN 14.6 g/dl (12.0-16.0); MEAN CELL VOLUME 101.6 fL CALC (80.0-100.0); MEAN CORPUSCULAR HGB 33.3 pG CALC (26.0-32.0); MEAN CORPUSCULAR HGB CONC 32.8 g/dL CAL (32.0-36.0); NEUT# 4.65 thou/uL (2.00-7.15); RED BLOOD COUNT 4.38 mill/uL (4.20-5.60); RED CELL DISTRI WIDTH 13.3 % (11.5-15.5)
[2022-07-27 21:22] LABS: ALKALINE PHOSPHATASE 59 u/l (38-126); BUN 7 mg/dL (7-17); BUN/CREATININE RATIO 16 (12-20 (CALC)); CARBON DIOXIDE 31 mmol/l (22-30); CHLORIDE 93 mmol/l (95-108); CREATININE 0.4 mg/dL (0.5-1.0); GFR FOR AFR.AMER. > 60 ML/MIN (>=60 (CALC)); GFR OTHER RACES > 60 ML/MIN (>=60 (CALC)); SGOT/AST 29 u/l (14-36); SODIUM 136 mmol/l (137-146)
[2022-07-27 21:31] LABS: MYOGLOBIN 24 ng/mL (0 - 62)
[2022-07-27 21:36] LABS: ALBUMIN 4.7 g/dL (3.2-5.0); ANION GAP 16 (6-22 (CALC)); BILIRUBIN, TOTAL 0.3 mg/dL (0.0-1.4); POTASSIUM 3.5 mmol/l (3.5-5.1); TOTAL PROTEIN 7.7 g/dL (6.3-8.2)
[2022-07-27] MEDS ORDERED: ZPAK PO (22:27)
[2022-07-27] MEDS ORDERED: MEDDOSEPAK PO (22:27)
[2022-07-28] VITALS (35 sets, daily range): BP systolic 92–153; BP diastolic 61–103
== END 2022-07-28 09:34 | disposition home or self-care (01) ==
LOC: ED 20:35
PROVIDERS: Emergency Medicine
DX: J44.1 Chronic obstructive pulmonary disease with (acute) exacerbation (principal); F32.A Depression, unspecified; Z99.81 Dependence on supplemental oxygen

== ENCOUNTER 2022-11-28 12:45 | Inpatient (IN) | payer OTHER ==
[2022-11-28] VITALS (12 sets, daily range): BP systolic 122–162; BP diastolic 77–100
[~2022-11-28] VITALS: Ht 162.6 cm; Wt 54.2 kg
[2022-11-28 13:18] LABS: BASO% 0.7 % (0-3); EOS% 1.3 % (0-8); HEMATOCRIT 49.6 % (37.0-47.0); IMMATURE GRANULOCYTES 0.2 % (0.0-5.0); LYMPH% 19.1 % (15-41); MEAN CELL VOLUME 101.2 fL CALC (80.0-100.0); MEAN CORPUSCULAR HGB 32.7 pG CALC (26.0-32.0); MEAN CORPUSCULAR HGB CONC 32.3 g/dL CAL (32.0-36.0); MONO% 8.7 % (2-13); NEUT# 6.75 thou/uL (2.00-7.15); RED BLOOD COUNT 4.9 mill/uL (4.20-5.60); RED CELL DISTRI WIDTH 13.8 % (11.5-15.5)
[2022-11-28 13:30] LABS: ALBUMIN 5.1 g/dL (3.2-5.0); ALKALINE PHOSPHATASE 78 u/l (38-126); BILIRUBIN, TOTAL 0.4 mg/dL (0.02-1.3); BUN 4 mg/dL (7-17); BUN/CREATININE RATIO 14 (12-20 (CALC)); CHLORIDE 96 mmol/l (95-108); CREATININE 0.3 mg/dL (0.5-1.0); GFR FOR AFR.AMER. > 60 ML/MIN (>=60 (CALC)); GFR OTHER RACES > 60 ML/MIN (>=60 (CALC)); SGOT/AST 39 u/l (14-36); SODIUM 139 mmol/l (137-146); TOTAL PROTEIN 8.5 g/dL (6.3-8.2)
[2022-11-28 13:31] LABS: ANION GAP 10 (6-22 (CALC)); CARBON DIOXIDE 38 mmol/l (22-30); POTASSIUM 4.5 mmol/l (3.5-5.1)
[2022-11-28 18:53] LABS: URINE BILIRUBIN - DIPSTICK NEGATIVE (NEGATIVE); URINE BLOOD DIPSTICK SMALL (NEGATIVE); URINE COLOR YELLOW; URINE GLUCOSE - DIPSTICK NEGATIVE (NEGATIVE); URINE KETONE TRACE mg/dL (NEGATIVE); URINE NITRITE - DIPSTICK NEGATIVE (Negative); URINE PROTEIN - DIPSTICK 100 mg/dL (NEG-TRACE); URINE SPECIFIC GRAVITY >=1.030; URINE UROBILINOGEN - DIPSTICK 0.2 E.U./dL (0.2)
[2022-11-28 18:54] LABS: URINE LEUK ESTERASE MODERATE (NEGATIVE); URINE SQUAMOUS EPITHELIAL CELL MANY EPI/hpf (0-FEW); URINE TRICHOMONAS MANY hpf; URINE WBC 20-50 WBC/hpf (0-5)
[2022-11-29 00:02] VITALS: BP 141/77
[2022-11-29 04:28] VITALS: BP 138/82
[2022-11-29 05:23] LABS: BASO% 0.2 % (0-3); HEMOGLOBIN 14.8 g/dl (12.0-16.0); IMMATURE GRANULOCYTES 0.2 % (0.0-5.0); LYMPH% 16.5 % (15-41); MEAN CELL VOLUME 102.7 fL CALC (80.0-100.0); MEAN CORPUSCULAR HGB CONC 32.2 g/dL CAL (32.0-36.0); MONO% 3.3 % (2-13); NEUT# 3.58 thou/uL (2.00-7.15); NEUT% 79.8 % (42-76); RED BLOOD COUNT 4.48 mill/uL (4.20-5.60); RED CELL DISTRI WIDTH 13.7 % (11.5-15.5)
[2022-11-29 05:46] LABS: ALBUMIN 4.1 g/dL (3.2-5.0); ALKALINE PHOSPHATASE 63 u/l (38-126); BUN 12 mg/dL (7-17); BUN/CREATININE RATIO 30 (12-20 (CALC)); CARBON DIOXIDE 37 mmol/l (22-30); CHLORIDE 94 mmol/l (95-108); CREATININE 0.4 mg/dL (0.5-1.0); GFR FOR AFR.AMER. > 60 ML/MIN (>=60 (CALC)); GFR OTHER RACES > 60 ML/MIN (>=60 (CALC)); MAGNESIUM 1.8 mg/dL (1.6-2.3); SGOT/AST 24 u/l (14-36); SODIUM 135 mmol/l (137-146)
[2022-11-29 05:50] LABS: ANION GAP 10 (6-22 (CALC)); POTASSIUM 5.5 mmol/l (3.5-5.1); TOTAL PROTEIN 6.6 g/dL (6.3-8.2)
[2022-11-29 06:31] VITALS: BP 134/88
[2022-11-29 10:48] VITALS: BP 131/79
[2022-11-29 19:43] VITALS: BP 135/84
[2022-11-29 19:45] VITALS: BP 135/84
[2022-11-30] VITALS (8 sets, daily range): BP systolic 107–169; BP diastolic 64–98
[2022-12-01] VITALS (8 sets, daily range): BP systolic 134–217; BP diastolic 82–121
[2022-12-01 05:59] LABS: BASO% 0.1 % (0-3); HEMATOCRIT 47.2 % (37.0-47.0); HEMOGLOBIN 15.4 g/dl (12.0-16.0); IMMATURE GRANULOCYTES 0.1 % (0.0-5.0); LYMPH% 14.1 % (15-41); MEAN CELL VOLUME 102.8 fL CALC (80.0-100.0); MEAN CORPUSCULAR HGB 33.6 pG CALC (26.0-32.0); MEAN CORPUSCULAR HGB CONC 32.6 g/dL CAL (32.0-36.0); MONO% 4.4 % (2-13); NEUT# 7.01 thou/uL (2.00-7.15); NEUT% 81.3 % (42-76); RED BLOOD COUNT 4.59 mill/uL (4.20-5.60); RED CELL DISTRI WIDTH 13.2 % (11.5-15.5)
[2022-12-01 07:05] LABS: ALBUMIN 4.5 g/dL (3.2-5.0); ALKALINE PHOSPHATASE 69 u/l (38-126); ANION GAP 10 (6-22 (CALC)); BUN 17 mg/dL (7-17); BUN/CREATININE RATIO 49 (12-20 (CALC)); CARBON DIOXIDE 38 mmol/l (22-30); CHLORIDE 90 mmol/l (95-108); CREATININE 0.3 mg/dL (0.5-1.0); GFR FOR AFR.AMER. > 60 ML/MIN (>=60 (CALC)); GFR OTHER RACES > 60 ML/MIN (>=60 (CALC)); POTASSIUM 4.6 mmol/l (3.5-5.1); SGOT/AST 30 u/l (14-36); SODIUM 134 mmol/l (137-146)
[2022-12-01 07:07] LABS: BILIRUBIN, TOTAL 0.1 mg/dL (0.02-1.3)
[2022-12-02] VITALS (146 sets, daily range): BP systolic 69–183; BP diastolic 48–119
[2022-12-02 06:28] LABS: ALBUMIN 3.9 g/dL (3.2-5.0); ALKALINE PHOSPHATASE 51 u/l (38-126); BUN 14 mg/dL (7-17); BUN/CREATININE RATIO 35 (12-20 (CALC)); CHLORIDE 87 mmol/l (95-108); CREATININE 0.4 mg/dL (0.5-1.0); GFR FOR AFR.AMER. > 60 ML/MIN (>=60 (CALC)); GFR OTHER RACES > 60 ML/MIN (>=60 (CALC)); POTASSIUM 4.7 mmol/l (3.5-5.1); SGOT/AST 23 u/l (14-36); SODIUM 134 mmol/l (137-146); TOTAL PROTEIN 6.2 g/dL (6.3-8.2)
[2022-12-02 06:40] LABS: ANION GAP 5 (6-22 (CALC)); CARBON DIOXIDE 47 mmol/l (22-30)
[2022-12-02 14:46] LABS: BASO% 0.1 % (0-3); HEMATOCRIT 47.2 % (37.0-47.0); HEMOGLOBIN 14.4 g/dl (12.0-16.0); IMMATURE GRANULOCYTES 0.1 % (0.0-5.0); LYMPH% 16.3 % (15-41); MEAN CELL VOLUME 106.8 fL CALC (80.0-100.0); MEAN CORPUSCULAR HGB 32.6 pG CALC (26.0-32.0); MEAN CORPUSCULAR HGB CONC 30.5 g/dL CAL (32.0-36.0); MONO% 5.4 % (2-13); NEUT# 5.72 thou/uL (2.00-7.15); NEUT% 78.1 % (42-76); RED BLOOD COUNT 4.42 mill/uL (4.20-5.60); RED CELL DISTRI WIDTH 13.1 % (11.5-15.5)
[2022-12-03] VITALS (90 sets, daily range): BP systolic 111–175; BP diastolic 66–111
[2022-12-03 05:42] LABS: HEMATOCRIT 41.6 % (37.0-47.0); HEMOGLOBIN 13.7 g/dl (12.0-16.0); MEAN CELL VOLUME 101.7 fL CALC (80.0-100.0); MEAN CORPUSCULAR HGB 33.5 pG CALC (26.0-32.0); MEAN CORPUSCULAR HGB CONC 32.9 g/dL CAL (32.0-36.0); RED BLOOD COUNT 4.09 mill/uL (4.20-5.60); RED CELL DISTRI WIDTH 12.9 % (11.5-15.5)
[2022-12-03 06:28] LABS: ALBUMIN 3.5 g/dL (3.2-5.0); ALKALINE PHOSPHATASE 53 u/l (38-126); BUN 28 mg/dL (7-17); BUN/CREATININE RATIO 62 (12-20 (CALC)); CARBON DIOXIDE 39 mmol/l (22-30); CHLORIDE 93 mmol/l (95-108); CREATININE 0.5 mg/dL (0.5-1.0); GFR FOR AFR.AMER. > 60 ML/MIN (>=60 (CALC)); GFR OTHER RACES > 60 ML/MIN (>=60 (CALC)); MAGNESIUM 2.1 mg/dL (1.6-2.3); SGOT/AST 28 u/l (14-36); SODIUM 135 mmol/l (137-146); TOTAL PROTEIN 5.7 g/dL (6.3-8.2)
[2022-12-03 06:29] LABS: ANION GAP 6 (6-22 (CALC)); BILIRUBIN, TOTAL 0.2 mg/dL (0.02-1.3); POTASSIUM 3.3 mmol/l (3.5-5.1)
[2022-12-04] VITALS (73 sets, daily range): BP systolic 95–180; BP diastolic 59–109
[2022-12-04 04:48] LABS: HEMATOCRIT 40.7 % (37.0-47.0); HEMOGLOBIN 12.9 g/dl (12.0-16.0); MEAN CELL VOLUME 101.8 fL CALC (80.0-100.0); MEAN CORPUSCULAR HGB 32.3 pG CALC (26.0-32.0); MEAN CORPUSCULAR HGB CONC 31.7 g/dL CAL (32.0-36.0); RED CELL DISTRI WIDTH 13.6 % (11.5-15.5)
[2022-12-04 05:00] LABS: ALBUMIN 3.2 g/dL (3.2-5.0); ALKALINE PHOSPHATASE 44 u/l (38-126); ANION GAP 5 (6-22 (CALC)); BUN 26 mg/dL (7-17); BUN/CREATININE RATIO 81 (12-20 (CALC)); CARBON DIOXIDE 39 mmol/l (22-30); CHLORIDE 99 mmol/l (95-108); CREATININE 0.3 mg/dL (0.5-1.0); GFR FOR AFR.AMER. > 60 ML/MIN (>=60 (CALC)); GFR OTHER RACES > 60 ML/MIN (>=60 (CALC)); MAGNESIUM 2.2 mg/dL (1.6-2.3); POTASSIUM 3.4 mmol/l (3.5-5.1); SGOT/AST 28 u/l (14-36); SODIUM 140 mmol/l (137-146); TOTAL PROTEIN 5.4 g/dL (6.3-8.2)
[2022-12-05] VITALS (268 sets, daily range): BP systolic 61–184; BP diastolic 41–131
[2022-12-05 06:36] LABS: HEMATOCRIT 37.1 % (37.0-47.0); HEMOGLOBIN 11.7 g/dl (12.0-16.0); MEAN CELL VOLUME 102.8 fL CALC (80.0-100.0); MEAN CORPUSCULAR HGB 32.4 pG CALC (26.0-32.0); MEAN CORPUSCULAR HGB CONC 31.5 g/dL CAL (32.0-36.0); RED BLOOD COUNT 3.61 mill/uL (4.20-5.60); RED CELL DISTRI WIDTH 13.6 % (11.5-15.5)
[2022-12-05 07:00] LABS: ALBUMIN 3.2 g/dL (3.2-5.0); ALKALINE PHOSPHATASE 36 u/l (38-126); ANION GAP 3 (6-22 (CALC)); BUN 26 mg/dL (7-17); BUN/CREATININE RATIO 87 (12-20 (CALC)); CARBON DIOXIDE 39 mmol/l (22-30); CHLORIDE 100 mmol/l (95-108); CREATININE 0.3 mg/dL (0.5-1.0); GFR FOR AFR.AMER. > 60 ML/MIN (>=60 (CALC)); GFR OTHER RACES > 60 ML/MIN (>=60 (CALC)); POTASSIUM 3.1 mmol/l (3.5-5.1); SGOT/AST 24 u/l (14-36); SODIUM 139 mmol/l (137-146); TOTAL PROTEIN 5.4 g/dL (6.3-8.2)
[2022-12-06] VITALS (208 sets, daily range): BP systolic 27–179; BP diastolic 13–134
[2022-12-06 05:46] LABS: BASO% 0.1 % (0-3); HEMATOCRIT 35.6 % (37.0-47.0); HEMOGLOBIN 11.5 g/dl (12.0-16.0); IMMATURE GRANULOCYTES 0.1 % (0.0-5.0); LYMPH% 15.1 % (15-41); MEAN CELL VOLUME 100.3 fL CALC (80.0-100.0); MEAN CORPUSCULAR HGB 32.4 pG CALC (26.0-32.0); MEAN CORPUSCULAR HGB CONC 32.3 g/dL CAL (32.0-36.0); MONO% 5.2 % (2-13); NEUT# 6.25 thou/uL (2.00-7.15); NEUT% 79.5 % (42-76); RED BLOOD COUNT 3.55 mill/uL (4.20-5.60); RED CELL DISTRI WIDTH 13.2 % (11.5-15.5)
[2022-12-06 06:02] LABS: ALBUMIN 3.1 g/dL (3.2-5.0); ALKALINE PHOSPHATASE 38 u/l (38-126); ANION GAP 2 (6-22 (CALC)); BUN 20 mg/dL (7-17); BUN/CREATININE RATIO 64 (12-20 (CALC)); CARBON DIOXIDE 39 mmol/l (22-30); CHLORIDE 100 mmol/l (95-108); CREATININE 0.3 mg/dL (0.5-1.0); GFR FOR AFR.AMER. > 60 ML/MIN (>=60 (CALC)); GFR OTHER RACES > 60 ML/MIN (>=60 (CALC)); MAGNESIUM 1.9 mg/dL (1.6-2.3); POTASSIUM 3.5 mmol/l (3.5-5.1); SGOT/AST 36 u/l (14-36); SODIUM 137 mmol/l (137-146); TOTAL PROTEIN 5.2 g/dL (6.3-8.2)
[2022-12-06 06:11] LABS: BILIRUBIN, TOTAL 0.3 mg/dL (0.02-1.3)
[2022-12-06] MEDS ORDERED: FLEXERIL5 M1 PO (09:29)
[2022-12-06] MEDS ORDERED: MELOXICAM7.5 MG PO (09:29)
[2022-12-07] VITALS (16 sets, daily range): BP systolic 41–156; BP diastolic 20–118
[2022-12-07 05:35] LABS: BASO% 0.2 % (0-3); EOS% 0.5 % (0-8); HEMOGLOBIN 12.4 g/dl (12.0-16.0); IMMATURE GRANULOCYTES 0.2 % (0.0-5.0); MEAN CELL VOLUME 98.7 fL CALC (80.0-100.0); MEAN CORPUSCULAR HGB 33.1 pG CALC (26.0-32.0); MEAN CORPUSCULAR HGB CONC 33.5 g/dL CAL (32.0-36.0); MONO% 7.4 % (2-13); NEUT# 7.57 thou/uL (2.00-7.15); NEUT% 70.7 % (42-76); RED BLOOD COUNT 3.75 mill/uL (4.20-5.60); RED CELL DISTRI WIDTH 12.9 % (11.5-15.5)
[2022-12-07 05:48] LABS: ANION GAP 4 (6-22 (CALC)); BUN 11 mg/dL (7-17); BUN/CREATININE RATIO 41 (12-20 (CALC)); CARBON DIOXIDE 38 mmol/l (22-30); CHLORIDE 95 mmol/l (95-108); CREATININE 0.3 mg/dL (0.5-1.0); GFR FOR AFR.AMER. > 60 ML/MIN (>=60 (CALC)); GFR OTHER RACES > 60 ML/MIN (>=60 (CALC)); MAGNESIUM 1.6 mg/dL (1.6-2.3); SODIUM 134 mmol/l (137-146)
[2022-12-08 04:29] VITALS: BP 134/84
[2022-12-08 05:47] LABS: BASO% 0.2 % (0-3); EOS% 1.3 % (0-8); IMMATURE GRANULOCYTES 0.2 % (0.0-5.0); LYMPH% 25.1 % (15-41); MEAN CORPUSCULAR HGB 32.5 pG CALC (26.0-32.0); MEAN CORPUSCULAR HGB CONC 33.6 g/dL CAL (32.0-36.0); MONO% 10.4 % (2-13); NEUT# 7.97 thou/uL (2.00-7.15); NEUT% 62.8 % (42-76); RED BLOOD COUNT 4.64 mill/uL (4.20-5.60); RED CELL DISTRI WIDTH 12.9 % (11.5-15.5)
[2022-12-08 06:14] LABS: HEMOGLOBIN 15.1 g/dl (12.0-16.0)
[2022-12-08 06:18] LABS: BUN 24 mg/dL (7-17); BUN/CREATININE RATIO 62 (12-20 (CALC)); CARBON DIOXIDE 37 mmol/l (22-30); CHLORIDE 95 mmol/l (95-108); CREATININE 0.4 mg/dL (0.5-1.0); GFR FOR AFR.AMER. > 60 ML/MIN (>=60 (CALC)); GFR OTHER RACES > 60 ML/MIN (>=60 (CALC)); SODIUM 135 mmol/l (137-146)
[2022-12-08 06:24] LABS: ANION GAP 7 (6-22 (CALC)); MAGNESIUM 2.3 mg/dL (1.6-2.3); POTASSIUM 3.9 mmol/l (3.5-5.1)
[2022-12-08 07:03] VITALS: BP 132/84
[2022-12-08] MEDS ORDERED: PREDNISONE20 MG PO (10:56)
[2022-12-08] MEDS ORDERED: QUETIAPINE FUMA25 MG PO (10:56)
[2022-12-08] MEDS ORDERED: LOPRESSOR25 MG PO (10:57)
[2022-12-08 11:26] VITALS: BP 138/76
== END 2022-12-08 13:24 | DRG 208 ==
LOC: ED 12:45 → ED-I 13:53 → ED 15:46 → MS2 15:47 → ICU 11-29 09:50 → MS2 11-29 09:50 → ICU 12-02 11:10 → MS2 12-02 11:10 → ICU 12-02 11:10 → MS2 12-07 15:45 → ICU 12-07 15:45 → MS2 12-07 15:45
PROVIDERS: Internal Medicine; Nurse Practitioner; Nurse Practitioner Family; ADMIT Internal Medicine; ATTEND Internal Medicine
PROC: 5A09457 Assistance with Respiratory Ventilation, 24-96 Consecutive Hours, Continuous Positive Airway Pressure (ICD-10-PCS; principal; 2022-11-30)
PROC: 5A1945Z Respiratory Ventilation, 24-96 Consecutive Hours (ICD-10-PCS; 2022-12-02)
PROC: 0BH17EZ Insertion of Endotracheal Airway into Trachea, Via Natural or Artificial Opening (ICD-10-PCS; 2022-12-02)
PROC: 02HV33Z Insertion of Infusion Device into Superior Vena Cava, Percutaneous Approach (ICD-10-PCS; 2022-12-02)
PROC: 3E043XZ Introduction of Vasopressor into Central Vein, Percutaneous Approach (ICD-10-PCS; 2022-12-02)
PROC: 0T9B70Z Drainage of Bladder with Drainage Device, Via Natural or Artificial Opening (ICD-10-PCS; 2022-12-02)
DX: J10.1 Influenza due to other identified influenza virus with other respiratory manifestations (principal); J96.21 Acute and chronic respiratory failure with hypoxia; J96.22 Acute and chronic respiratory failure with hypercapnia; G92.8 Other toxic encephalopathy; R64 Cachexia; Z68.1 Body mass index [BMI] 19.9 or less, adult; F15.150 Other stimulant abuse with stimulant-induced psychotic disorder with delusions; J43.9 Emphysema, unspecified; F41.1 Generalized anxiety disorder; F31.9 Bipolar disorder, unspecified; D53.9 Nutritional anemia, unspecified; E87.6 Hypokalemia; M19.90 Unspecified osteoarthritis, unspecified site; F17.200 Nicotine dependence, unspecified, uncomplicated; Z99.81 Dependence on supplemental oxygen; Z87.11 Personal history of peptic ulcer disease; Z78.1 Physical restraint status; Z91.14 Patient's other noncompliance with medication regimen; Z20.822 Contact with and (suspected) exposure to COVID-19
CPT/HCPCS: J1650; J2060; J3475

== ENCOUNTER 2022-12-15 14:55 | Observation (INO) | payer OTHER ==
[~2022-12-15] VITALS: Ht 162.6 cm; Wt 35.7 kg
[2022-12-15] VITALS (13 sets, daily range): BP systolic 109–145; BP diastolic 69–114
[~2022-12-15 14:55] MED LIST changes: +FLEXERIL5 M1 PO; +LOPRESSOR25 MG PO; +MELOXICAM7.5 MG PO; +QUETIAPINE FUMA25 MG PO
--- NOTE | 2022-12-15 14:55 | NUR ---
PATIENT TO ROOM VIA EMS
--- NOTE | 2022-12-15 15:18 | NUR ---
SUPERISION NOTIFIED THAT CASE MANAGEMENT IS REQ DUE TO PATIENT NOT BEING ABLE TO AFFORD A NEBULIZER AND ONE IS REQUIRED AT HOME. CASE MGMT IS NOT IN THE BUILDING AND NO ONE IS ESL PROFESSOR. PATIENT WILL NOT BE ABLE TO SPEAK WITH CASE MGMT UNTIL TOMORROW. PATIENT NOTIFIED
[2022-12-15 15:22] LABS: BASO% 0.5 % (0-3); EOS% 2.8 % (0-8); HEMATOCRIT 42.2 % (37.0-47.0); HEMOGLOBIN 13.5 g/dl (12.0-16.0); IMMATURE GRANULOCYTES 0.3 % (0.0-5.0); LYMPH% 23.4 % (15-41); MEAN CELL VOLUME 101.2 fL CALC (80.0-100.0); MEAN CORPUSCULAR HGB 32.4 pG CALC (26.0-32.0); NEUT# 8.72 thou/uL (2.00-7.15); RED BLOOD COUNT 4.17 mill/uL (4.20-5.60)
[2022-12-15 15:32] LABS: ALBUMIN 3.7 g/dL (3.2-5.0); ALKALINE PHOSPHATASE 51 u/l (38-126); ANION GAP 6 (6-22 (CALC)); BUN 15 mg/dL (7-17); BUN/CREATININE RATIO 45 (12-20 (CALC)); CARBON DIOXIDE 35 mmol/l (22-30); CHLORIDE 96 mmol/l (95-108); CREATININE 0.3 mg/dL (0.5-1.0); GFR FOR AFR.AMER. > 60 ML/MIN (>=60 (CALC)); GFR OTHER RACES > 60 ML/MIN (>=60 (CALC)); POTASSIUM 3.9 mmol/l (3.5-5.1); SGOT/AST 33 u/l (14-36); SODIUM 133 mmol/l (137-146); TOTAL PROTEIN 6.1 g/dL (6.3-8.2)
[2022-12-15 15:33] LABS: BILIRUBIN, TOTAL 0.1 mg/dL (0.02-1.3)
--- NOTE | 2022-12-15 15:46 | NUR ---
PATIENT PROVIDED A CUP OF COFFEE AND A WARM BLANKET
--- NOTE | 2022-12-15 15:46 | NUR ---
OFFERED PATIENT A BEDSIDE COMODE. SHE DECLINED. STATES SHE IS OKAY TO WALK TO RESTROOM WHEN NECESSARY. DECLINES DAVID WELL.
--- NOTE | 2022-12-15 16:40 | NUR ---
PATIENT STATES SHE HAS SPOKEN WITH [employer] WHO PROVIDES HER NEBULIZERS REGARDING A SOLUTION SUCH FIXING THE BROKEN ONE SHE HAS AT HOME AND STATES THEY HAVE INFORMED HER THEY CANNOT DO ANYTHING FURTHER FOR HER.
--- NOTE | 2022-12-15 17:00 | NUR ---
Reassessment of patient completed. No distress noted. PATIENT PROVIDED WITH WATER
--- NOTE | 2022-12-15 17:17 | NUR ---
ASSISTED PATIENT TO BEDSIDE COMODE.
--- NOTE | 2022-12-15 17:27 | NUR ---
PT SEEN IN EMERGENCY ROOM, AWARE OF PENDING ADMISSION. PT IS ALERT AND ORIENTED X 3. LUNGS ARE CLEAR BUT DIMINISHED, USES 2 LPM NC. PT IS CACHECTIC IN APPEARANCE. NO ACUTE DISTRESS NOTED.
--- NOTE | 2022-12-15 17:42 | NUR ---
REPORT GIVEN TO SITA. SHE VERIFIED REPORT RECIEVED. PATIENT TRANSFERRED FROM WHEELCHAIR TO BED WITHOUT DIFFICULTY.
--- NOTE | 2022-12-15 18:02 | NUR ---
1740 PT UP FROM ER, REPORT GIVEN BY GAIL BARKER. PATIEN TRANSFERRED TO BED AND AMBULATES TO BR VOIDED YELLOW URINE. SL 18G LAC. TELE. BED IN L;OW POSITION AND CALL PARKER IN REACH.
--- NOTE | 2022-12-15 18:11 | NUR ---
PT'S BP 122/82 HR 90 SPO2@95%, VOIDED 500 ML. CALL PARKER IN REACH AND BED IN LOW POSITION, UPPER RAILS UPX2.
--- NOTE | 2022-12-15 19:34 | NUR ---
ER TELE MONITOR CALL TO NOTIFY PT HAD A RUN OF V TACH HR 120'S. WHEN I ENTER THE ROOM PT WAS IN THE BATHROOM, BATHROOM DOOR WAS LOCK. I ASK PT IF SHE WAS OK PT STATES YES I AM OK. SMOKING SMELL NOTED IN THE PT BATHROOM. PT DENIES CHEST PAIN OR DISCOMFORT. PT WALK TO BED WITHOUT COMPLICATIONS. VITALS OBTAINED. BP 132/89 HR 102 REP 20 TEMP 99.0 O2 96% ROOM AIR. PT WAS NOT WEARING OXYGEN. PT EDUCATATED THAT SMOKING IS PROHIBITED AND FIRE RISK. EDGE INKER HEELS MINGO NOTIFY AND CAME TO BED SIDE. PT BECOME AGITATED AND DEMAND TO LEAVE AMA. PT EDUCATED ON THE RISK OF LEAVING AMA. PT BECAME VERBALLY INAPPROPRIATE. AND CONTINUE TO ASK TO LEAVE AMA. PT SIGN AMA FORM. PT WHEEL OUT VIA WHELLCHAIR. ACCOMPANIED BY SECURITY.
== END 2022-12-15 19:30 | disposition left against medical advice (07) ==
LOC: ED 14:55 → ED-I 16:39 → ED 16:53 → MS2 16:54
PROVIDERS: Family Medicine; ADMIT Internal Medicine; ATTEND Internal Medicine
DX: J44.1 Chronic obstructive pulmonary disease with (acute) exacerbation (principal); F31.9 Bipolar disorder, unspecified; F17.200 Nicotine dependence, unspecified, uncomplicated; Z20.822 Contact with and (suspected) exposure to COVID-19
CPT/HCPCS: G0378

== ENCOUNTER 2024-10-04 03:59 | Emergency (ER) | payer OTHER ==
[~2024-10-04] VITALS: Ht 162.6 cm; Wt 36.3 kg
[2024-10-04] VITALS (10 sets, daily range): BP systolic 98–141; BP diastolic 63–93
[~2024-10-04 03:59] MED LIST changes: +ALBUTEROL SUL0.083 % PO; +DOXYCYCLINE100 MG PO; +PREDNISONE10 MG PO; -PROAIR HFA108 MCG/AC IN; +PROVENTIL HFA108 MCG IN; +SYMBICORT1 AE1 IN; +VENTOLIN HFA108 MCG PO
[2024-10-04] MEDS ORDERED: methylPREDNISolone SODIUM SUCC 125 MG/2 ML SDV IV ONE ×2 (04:15→05:50)
[2024-10-04] MEDS ORDERED: IPRATROPIUM-Albuterol 0.5MG-2.5MG/3 ML NEB ONE (04:15)
[2024-10-04 05:02] LABS: BASO% 0.6 % (0-3); EOS% 1.6 % (0-8); HEMATOCRIT 41.6 % (37.0-47.0); IMMATURE GRANULOCYTES 0.1 % (0.0-5.0); LYMPH% 22.8 % (15-41); MEAN CELL VOLUME 104.8 fL CALC (80.0-100.0); MEAN CORPUSCULAR HGB 32.7 pG CALC (26.0-32.0); MEAN CORPUSCULAR HGB CONC 31.3 g/dL CAL (32.0-36.0); MONO% 7.7 % (2-13); NEUT# 4.71 thou/uL (2.00-7.15); NEUT% 67.2 % (42-76); RED BLOOD COUNT 3.97 mill/uL (4.20-5.60); RED CELL DISTRI WIDTH 14.1 % (11.5-15.5)
[2024-10-04 05:13] LABS: ALKALINE PHOSPHATASE 55 u/l (38-126); ANION GAP 10 (6-22 (CALC)); BUN 5 mg/dL (7-17); BUN/CREATININE RATIO 15 (12-20 (CALC)); CARBON DIOXIDE 39 mmol/l (22-30); CHLORIDE 95 mmol/l (95-108); CREATININE 0.3 mg/dL (0.5-1.0); ESTIMATED GFR 126 ML/MIN (>=90 (CALC)); POTASSIUM 4.4 mmol/l (3.5-5.1); SGOT/AST 25 u/l (14-36); SODIUM 139 mmol/l (137-146)
[2024-10-04 05:23] LABS: PROTHROMBIN TIME 10.5 SECONDS (9.0-12.5)
[2024-10-04 05:24] LABS: BILIRUBIN, TOTAL 0.4 mg/dL (0.02-1.3); TOTAL PROTEIN 6.3 g/dL (6.3-8.2)
[2024-10-04 05:25] LABS: D-DIMER 0.7 mg/L (0.19-0.60)
[2024-10-04] MEDS ORDERED: Iopamidol 370 (Isovue) 76% 100 ML SDV IV ONE ×2 (05:45→07:30)
[2024-10-04] MEDS ORDERED: LACTATED RINGER'S 1,000 ML IV ONE (05:45)
[2024-10-04] MEDS ORDERED: DiphenhydrAMINE HCL 50 MG/ML SDV IV ONE (05:50)
[2024-10-04] MEDS ORDERED: VENTOLIN HFA108 MCG IN (08:33)
== END 2024-10-04 09:20 | disposition home or self-care (01) ==
LOC: ED 03:59
PROVIDERS: Family Medicine
DX: J44.1 Chronic obstructive pulmonary disease with (acute) exacerbation (principal); J96.10 Chronic respiratory failure, unspecified whether with hypoxia or hypercapnia; F31.9 Bipolar disorder, unspecified; F41.9 Anxiety disorder, unspecified; F17.200 Nicotine dependence, unspecified, uncomplicated; Z91.199 Patient's noncompliance with other medical treatment and regimen due to unspecified reason; Z59.00 Homelessness unspecified; Z20.822 Contact with and (suspected) exposure to COVID-19
CPT/HCPCS: J1200; Q9967

== ENCOUNTER 2024-10-19 03:25 | Emergency (ER) | payer OTHER ==
[~2024-10-19] VITALS: Ht 162.6 cm; Wt 36.0 kg
[~2024-10-19 03:25] MED LIST changes: +VENTOLIN HFA108 MCG IN
[2024-10-19] MEDS ORDERED: IPRATROPIUM-Albuterol 0.5MG-2.5MG/3 ML NEB ONE (03:35)
[2024-10-19] MEDS ORDERED: methylPREDNISolone SODIUM SUCC 125 MG/2 ML SDV IV ONE (03:35)
[2024-10-19 03:45] VITALS: BP 148/94
[2024-10-19 04:11] LABS: BASO% 0.8 % (0-3); EOS% 1.4 % (0-8); HEMATOCRIT 43.4 % (37.0-47.0); HEMOGLOBIN 13.5 g/dl (12.0-16.0); IMMATURE GRANULOCYTES 0.2 % (0.0-5.0); LYMPH% 27.2 % (15-41); MEAN CELL VOLUME 104.3 fL CALC (80.0-100.0); MEAN CORPUSCULAR HGB 32.5 pG CALC (26.0-32.0); MEAN CORPUSCULAR HGB CONC 31.1 g/dL CAL (32.0-36.0); MONO% 7.2 % (2-13); NEUT# 4.01 thou/uL (2.00-7.15); NEUT% 63.2 % (42-76); RED BLOOD COUNT 4.16 mill/uL (4.20-5.60); RED CELL DISTRI WIDTH 13.8 % (11.5-15.5)
[2024-10-19 04:26] LABS: ALBUMIN 4.2 g/dL (3.2-5.0); ALKALINE PHOSPHATASE 54 u/l (38-126); ANION GAP 8 (6-22 (CALC)); BILIRUBIN, TOTAL 0.3 mg/dL (0.02-1.3); BUN 5 mg/dL (7-17); BUN/CREATININE RATIO 13 (12-20 (CALC)); CARBON DIOXIDE 39 mmol/l (22-30); CHLORIDE 96 mmol/l (95-108); CREATININE 0.4 mg/dL (0.5-1.0); ESTIMATED GFR 118 ML/MIN (>=90 (CALC)); POTASSIUM 3.8 mmol/l (3.5-5.1); SGOT/AST 34 u/l (14-36); SODIUM 139 mmol/l (137-146); TOTAL PROTEIN 7.1 g/dL (6.3-8.2)
[2024-10-19] MEDS ORDERED: VIBRAMYCIN100 M2 PO (04:44)
[2024-10-19] MEDS ORDERED: PREDNISONE50 MG PO (04:44)
[2024-10-19 05:41] VITALS: BP 148/94
== END 2024-10-19 05:41 | disposition home or self-care (01) ==
LOC: ED 03:25
PROVIDERS: Family Medicine
DX: J44.1 Chronic obstructive pulmonary disease with (acute) exacerbation (principal); J96.10 Chronic respiratory failure, unspecified whether with hypoxia or hypercapnia; Z59.00 Homelessness unspecified; F31.9 Bipolar disorder, unspecified; F17.200 Nicotine dependence, unspecified, uncomplicated; Z91.190 Patient's noncompliance with other medical treatment and regimen due to financial hardship; Z20.822 Contact with and (suspected) exposure to COVID-19

== ENCOUNTER 2024-10-20 05:26 | Emergency (ER) | payer OTHER ==
[~2024-10-20] VITALS: Ht 162.6 cm; Wt 37.0 kg
[~2024-10-20 05:26] MED LIST changes: +VIBRAMYCIN100 M2 PO
[2024-10-20] MEDS ORDERED: ALBUTEROL SULFATE 2.5 MG VIAL IN STA (05:30)
[2024-10-20] MEDS ORDERED: methylPREDNISolone SODIUM SUCC 125 MG/2 ML SDV IV STA (05:30)
[2024-10-20] MEDS ORDERED: IPRATROPIUM-Albuterol 0.5MG-2.5MG/3 ML IN STA (05:30)
[2024-10-20 05:34] VITALS: BP 134/93
[2024-10-20 05:47] LABS: BASO% 0.1 % (0-3); EOS% 0.3 % (0-8); HEMATOCRIT 46.4 % (37.0-47.0); HEMOGLOBIN 14.4 g/dl (12.0-16.0); IMMATURE GRANULOCYTES 0.2 % (0.0-5.0); LYMPH% 16.9 % (15-41); MEAN CELL VOLUME 103.8 fL CALC (80.0-100.0); MEAN CORPUSCULAR HGB 32.2 pG CALC (26.0-32.0); MONO% 6.4 % (2-13); NEUT# 11.34 thou/uL (2.00-7.15); NEUT% 76.1 % (42-76); RED BLOOD COUNT 4.47 mill/uL (4.20-5.60); RED CELL DISTRI WIDTH 13.6 % (11.5-15.5)
[2024-10-20 05:53] LABS: ALBUMIN 4.7 g/dL (3.2-5.0); CREATININE 0.4 mg/dL (0.5-1.0); POTASSIUM 4.1 mmol/l (3.5-5.1); TOTAL PROTEIN 7.8 g/dL (6.3-8.2)
[2024-10-20 06:00] VITALS: BP 112/80
[2024-10-20 06:09] LABS: BILIRUBIN, TOTAL 0.5 mg/dL (0.02-1.3)
[2024-10-20 06:30] VITALS: BP 109/73
[2024-10-20 07:00] VITALS: BP 96/61
[2024-10-21] MEDS ORDERED: ZPAK PO (20:23)
[2024-10-21] MEDS ORDERED: MEDDOSEPAK PO (20:23)
== END 2024-10-20 07:28 | disposition home or self-care (01) ==
LOC: ED 05:26
PROVIDERS: Family Medicine
DX: J44.1 Chronic obstructive pulmonary disease with (acute) exacerbation (principal); J96.10 Chronic respiratory failure, unspecified whether with hypoxia or hypercapnia; F17.210 Nicotine dependence, cigarettes, uncomplicated; F41.9 Anxiety disorder, unspecified; F32.A Depression, unspecified; Z91.190 Patient's noncompliance with other medical treatment and regimen due to financial hardship; Z59.00 Homelessness unspecified; Z20.822 Contact with and (suspected) exposure to COVID-19

== ENCOUNTER 2024-10-21 16:09 | Emergency (ER) | payer OTHER ==
[~2024-10-21] VITALS: Ht 162.6 cm; Wt 43.0 kg
[2024-10-21] VITALS (8 sets, daily range): BP systolic 118–140; BP diastolic 71–102
[2024-10-21] MEDS ORDERED: IPRATROPIUM-Albuterol 0.5MG-2.5MG/3 ML NEB ONE ×2 (16:15)
[2024-10-21] MEDS ORDERED: methylPREDNISolone SODIUM SUCC 125 MG/2 ML SDV IV ONE (16:15)
[2024-10-21 17:24] LABS: BASO% 0.1 % (0-3); HEMATOCRIT 44.6 % (37.0-47.0); IMMATURE GRANULOCYTES 0.1 % (0.0-5.0); LYMPH% 5.2 % (15-41); MEAN CELL VOLUME 102.5 fL CALC (80.0-100.0); MEAN CORPUSCULAR HGB 32.2 pG CALC (26.0-32.0); MEAN CORPUSCULAR HGB CONC 31.4 g/dL CAL (32.0-36.0); NEUT# 9.3 thou/uL (2.00-7.15); NEUT% 93.6 % (42-76); RED BLOOD COUNT 4.35 mill/uL (4.20-5.60); RED CELL DISTRI WIDTH 13.6 % (11.5-15.5)
[2024-10-21 17:31] LABS: ALBUMIN 4.5 g/dL (3.2-5.0); ALKALINE PHOSPHATASE 64 u/l (38-126); ANION GAP 12 (6-22 (CALC)); BILIRUBIN, TOTAL 0.3 mg/dL (0.02-1.3); BUN 15 mg/dL (7-17); BUN/CREATININE RATIO 32 (12-20 (CALC)); CARBON DIOXIDE 38 mmol/l (22-30); CHLORIDE 92 mmol/l (95-108); CREATININE 0.5 mg/dL (0.5-1.0); ESTIMATED GFR 111 ML/MIN (>=90 (CALC)); POTASSIUM 3.8 mmol/l (3.5-5.1); SGOT/AST 36 u/l (14-36); SODIUM 139 mmol/l (137-146); TOTAL PROTEIN 7.3 g/dL (6.3-8.2)
[2024-10-21 19:37] LABS: URINE BILIRUBIN - DIPSTICK Negative (NEGATIVE); URINE BLOOD DIPSTICK Negative (NEGATIVE); URINE COLOR Yellow; URINE GLUCOSE - DIPSTICK Negative (NEGATIVE); URINE KETONE Negative (NEGATIVE); URINE LEUK ESTERASE Negative (NEGATIVE); URINE NITRITE - DIPSTICK Negative (Negative); URINE PROTEIN - DIPSTICK Negative (NEG-TRACE); URINE SPECIFIC GRAVITY 1.015; URINE UROBILINOGEN - DIPSTICK 0.2 E.U./dL (0.2)
[2024-10-21] MEDS ORDERED: MEDDOSEPAK PO (20:23)
[2024-10-21] MEDS ORDERED: ZPAK PO (20:23)
== END 2024-10-21 20:51 | disposition home or self-care (01) ==
LOC: ED 16:09
PROVIDERS: Nurse Practitioner
DX: J44.9 Chronic obstructive pulmonary disease, unspecified (principal); F15.10 Other stimulant abuse, uncomplicated; J96.10 Chronic respiratory failure, unspecified whether with hypoxia or hypercapnia; F17.200 Nicotine dependence, unspecified, uncomplicated; Z59.00 Homelessness unspecified; Z91.190 Patient's noncompliance with other medical treatment and regimen due to financial hardship; Z20.822 Contact with and (suspected) exposure to COVID-19